=== PATIENT | female | born 1995 | race Caucasian/White ===

== ENCOUNTER → 2017-10-27 13:34 | Outpatient (CLI) | payer MEDICAID, SELFPAY ==
[2017-10-27 16:46] LABS: Group B Strep DNA By PCR Negative (Negative); Internal Control PASS; Probe Check PASS; Specimen Processing Control PASS
== END ==
PROVIDERS: Visit Provider Obstetrics & Gynecology
DX: Z36.85 Encounter for antenatal screening for Streptococcus B (principal)
CPT/HCPCS: 87077; 87081; 87186; 87653

== ENCOUNTER 2017-11-15 05:19 | Inpatient (IN) | payer MEDICAID, SELFPAY ==
[2017-11-09 15:06] VITALS: BMI 30.7
[2017-11-15] VITALS (22 sets, daily range): BP systolic 99–116; BP diastolic 53–76; PULSE 76–106; RESP 14–18; TEMP 36–36.6; O2SAT 95–100; BMI 30.8
[2017-11-15] MEDS: Lactated Ringers 1,000 ML 999 ML IV (05:50)
[2017-11-15 06:21] LABS: Absolute Lymphocyte Count 3.31 X10^3/ul (0.83-4.51); Absolute Neutrophil Count 6.2 X10^3/uL (2.0-7.7); Basophil# 0.02 X10^3/uL; Basophil% 0.2 % (0-1); Eosinophil# 0.74 X10^3/uL; Eosinophils% 6.6 % (0-5); Hematocrit 34.9 % (37-47); Hemoglobin 11.6 g/dl (12.0-15.0); Lymphocyte # 3.31 X10^3/ul (4.0); Lymphocyte % 29.4 % (19-41); Mean Corp Hgb Conc 33.2 g/gl (32-36); Mean Corpuscular Hgb 30.9 pg (27.0-32.0); Mean Corpuscular Volume 93.1 fL (81-99); Monocyte# 0.89 X10^3/uL; Monocyte% 7.9 % (0-10); Neutrophil # 6.24 X10^3/uL (2.7-7.7); Neutrophil % 55.3 % (47-70); Platelet Count 271 K/mm3 (150-450); RBC Distribution Width CV 12.7 % (11.6-14.6); RBC Distribution Width SD 42.4 fl (35.1-43.9); Red Blood Count 3.75 M/mm3 (4.2-5.4); White Blood Count 11.3 K/mm3 (4.4-11.0)
[2017-11-15 06:22] LABS: POSITIVE COUNT NO; POSITIVE DIFFERENTIAL NO; POSITIVE MORPHOLOGY NO
[2017-11-15 06:40] LABS: Prothrombin Time (Protime)PT. 13.5 SECONDS (11.7-14.9)
[2017-11-15 06:41] LABS: Partial Thromboplast Time 24.2 Seconds (24.1-36.2)
[2017-11-15] MEDS: Lactated Ringers 1,000 ML 150 ML IV (06:47)
[2017-11-15] MEDS: Sodium Citrate/Citric Acid 30 ML UDC PO (07:03)
[2017-11-15] MEDS: Cefazolin 2 GM in 0.9% Normal Saline 100 ML IV (07:20)
[2017-11-15] MEDS: Oxytocin 30 units/NS 500 ml 30 UNITS/500 ML IV.SOLN 167 UNITS IV (07:41)
--- NOTE | 2017-11-15 08:19 | PCM.OP.BLANK ---
Operative Report Date of Procedure: 11/15/17 Surgeon: Julio Wheeler MD, FACOG Chief Wellness Officer: ANNMARIE Vu Anesthesia: Sanford No CRNA Anesthesia: Spinal with Duramorph Pre-op Diagnosis: - -Prior Section Post-Op Diagnosis: - -Prior Section Procedure: Repeat Low Transverse Cervical Caesarean Section Findings: Viable male with Apgars of 9/9 in occiput anterior presentation with clear amniotic fluid and normal three-vessel placenta. Indication: This is a 22-year-old who presents for her second at 39+ weeks gestation. care has otherwise been uneventful. The patient has been counseled regarding the risk and indications of this procedure including the possibility of bleeding infection and injury to surrounding structures such as bowel bladder. All questions were answered. Procedure: Patient was taken to the operating room where after spinal anesthesia was placed, the patient was prepped and draped in usual sterile fashion and a Otero catheter was placed. The abdomen was entered through the patient's prior Pfannenstiel incision and peritoneum was entered bluntly. After developing a bladder flap on the lower uterine segment a low transverse incision was made on the uterus and head was easily delivered onto the operative field the nose mouth and oropharynx were bulb suctioned. Subsequently a viable male infant was born with Apgars of 9/9. The infant was noted to cry move all extremities vigorously on the operative field. The umbilical cord was doubly clamped and ligated and handed to the nursery personnel who were present for the delivery. Placenta was delivered and noted to be 3 vessels and normal. Uterus was exteriorized and remaining placental tissue was removed. The uterus was then closed in 2 layers first with running locked 0 Vicryl suture followed by a second imbricating layer with 0 Vicryl suture. 0 Vicryl suture was then used in a horizontal mattress interrupted fashion to affect final hemostasis of the uterine incision line. Normal fallopian tubes and ovaries were visualized and the uterus was returned to the pelvis. Hemostasis was noted and rectus abdominis muscles were reapproximated in the midline with interrupted Number 0 Vicryl suture in a horizontal mattress fashion. Fascia was closed with running Number 1 PDS Strata fix suture. Subcutaneous tissue was irrigated with copious amouts of saline solution and then closed with running 3-0 Vicryl suture. Skin was closed with 4-0 monocryl suture in a running subcuticular fashion. Steri strips, telfa, and tape were placed across the incision. The patient tolerated the procedure well and was taken to the recovery room in satisfactory condition. Sponge, needle, and instrument counts were all reportedly correct. EBL was less than 500 cc. Ancef 2 gms IV was given prior to the procedure. Spicemen to Pathology: None Complications: None
[2017-11-15] MEDS: Lactated Ringers 1,000 ML 100 ML IV ×2 (08:20→17:45)
--- NOTE | 2017-11-15 08:25 | PCM.DCCSEC ---
Discharge Diet: No Restrictions Discharge Activity: May not drive while taking narcotic pain medications., May Shower, May Take a Tub Bath May resume sexual activity in: 4-6 weeks Lifting Restrictions: 20 pounds Additional Activity Instructions:: Nothing in the vagina for 4-6 weeks. You may return to work/school in 6 weeks. Call your doctor if your incision/area has: Continuous Slow Oozing, Sudden Increased Bleeding, Increased Pain/ Swelling, Increased Redness, Foul Smelling Discharge Call your doctor if you observe: Fever of 101 or Higher, Inability to urinate, Inability to have a bowel movement, Using more than one pad per hour Additional Instructions: If you experience any of the following, contact your healthcare provider. Bleeding that soaks a pad every hour for 2 hours Unrelieved incision or abdominal pain Swelling, redness, discharge or bleeding from your incision or episiotomy site Your incision begins to separate Problems urinating (including inability to urinate or burning while urinating). Visual changes Severe headache Flu-like symptoms Pain or redness in one of both of your breasts Pain, warmth, tenderness or swelling in your legs, especially the calf area Frequent nausea and vomiting Symptoms of depression or anxiety If you experience any of the following, call 911 or go to the nearest Emergency Room. Chest pain Problems breathing Seizure activity Partial or complete paralysis of a body part, slurred speech, weakness or drooping of the face, or a sudden inability to walk or hold your balance Allergies/Adverse Reactions: Allergies hydrocodone [From Vicodin] Allergy (Verified 08/18/16 14:33) Vomiting hydromorphone [From Dilaudid] Allergy (Verified 11/09/17 15:04) Swelling Medications to take at Discharge Iron Bis-Gly/FA/C/B12/Ca/Succ [Iron / Tablet] 1 each PO DAILY 08/18/16 Vits [Prenatabs FA] 1 tablet PO DAILY 08/18/16 Folic Acid 2 mg PO BIDCM 11/09/17 Docusate Sodium [Colace] 100 mg PO BID PRN PRN #60 cap 11/15/17 Oxycodone [Oxyir] 5 mg PO Q6H PRN PRN 7 Days #20 tab 11/15/17 The following prescriptions were given: Oxycodone [Oxyir] 5 mg PO Q6H PRN PRN 7 Days #20 tab PRN Reason: Severe Pain (6-06/01) Docusate Sodium [Colace] 100 mg PO BID PRN PRN #60 cap PRN Reason: Constipation Follow-Up: Call to make an appointment with your doctor for an incision check in 1-2 weeks. You will also need a 6 week post- follow up appointment. Please Follow Up With: Julio Wheeler MD - [phone] When: 2 weeks Primary Care Physician: Care Physician,No Primary [Primary Care Provider] -
--- NOTE | 2017-11-15 08:28 | DCINST_ITS ---
Discharge Diet: No Restrictions Discharge Activity: May not drive while taking narcotic pain medications., May Shower, May Take a Tub Bath May resume sexual activity in: 4-6 weeks Lifting Restrictions: 20 pounds Additional Activity Instructions:: Nothing in the vagina for 4-6 weeks. You may return to work/school in 6 weeks. Call your doctor if your incision/area has: Continuous Slow Oozing, Sudden Increased Bleeding, Increased Pain/ Swelling, Increased Redness, Foul Smelling Discharge Call your doctor if you observe: Fever of 101 or Higher, Inability to urinate, Inability to have a bowel movement, Using more than one pad per hour Additional Instructions: If you experience any of the following, contact your healthcare provider. * Bleeding that soaks a pad every hour for 2 hours * Unrelieved incision or abdominal pain * Swelling, redness, discharge or bleeding from your incision or episiotomy site * Your incision begins to separate * Problems urinating (including inability to urinate or burning while urinating) . * Visual changes * Severe headache * Flu-like symptoms * Pain or redness in one of both of your breasts * Pain, warmth, tenderness or swelling in your legs, especially the calf area * Frequent nausea and vomiting * Symptoms of depression or anxiety If you experience any of the following, call 911 or go to the nearest Emergency Room. * Chest pain * Problems breathing * Seizure activity * Partial or complete paralysis of a body part, slurred speech, weakness or drooping of the face, or a sudden inability to walk or hold your balance Allergies/Adverse Reactions: Allergies hydrocodone [From Vicodin] Allergy (Verified 08/18/16 14:33) Vomiting hydromorphone [From Dilaudid] Allergy (Verified 11/09/17 15:04) Swelling Medications to take at Discharge Iron Bis-Gly/FA/C/B12/Ca/Succ [Iron 21/7 Tablet] 1 each PO DAILY 08/18/16 Vits [Prenatabs FA] 1 tablet PO DAILY 08/18/16 Folic Acid 2 mg PO BIDCM 11/09/17 Docusate Sodium [Colace] 100 mg PO BID PRN PRN #60 cap 11/15/17 Oxycodone [Oxyir] 5 mg PO Q6H PRN PRN 7 Days #20 tab 11/15/17 The following prescriptions were given: Oxycodone [Oxyir] 5 mg PO Q6H PRN PRN 7 Days #20 tab PRN Reason: Severe Pain (6-06/01) Docusate Sodium [Colace] 100 mg PO BID PRN PRN #60 cap PRN Reason: Constipation Follow-Up: Call to make an appointment with your doctor for an incision check in 1-2 weeks. You will also need a 6 week post- follow up appointment. Please Follow Up With: Julio Wheeler MD - [phone] When: 2 weeks Primary Care Physician: Care Physician,No Primary [Primary Care Provider] -
[2017-11-15] MEDS: Methylergonovine 0.2 MG/ML Ampul IM (09:42)
--- NOTE | 2017-11-15 10:40 | PCM.PN.BLA ---
Progress Note Called by JEANINE Roberson d/t elena inc in vaginal bleeding , intermittent atony Hemabate x one dose Methergine po q 6 hr x 24 hr.
[2017-11-15] MEDS: Carboprost Tromethamine 250 MCG/ML Ampul IM (10:58)
[2017-11-15] MEDS: Ketorolac 30 MG/ML Syringe IV ×2 (13:14→17:45)
[2017-11-15] MEDS: 0.9% Saline Lock 10 ML Syringe IV ×2 (13:14→17:45)
--- NOTE | 2017-11-15 14:26 | NURSING ---
This bridge instructor reviewed the charting completed by the student nurse on 11/15/17.
[2017-11-15] MEDS: Cefazolin 1 GM/50 ML BAG IV ×2 (16:17→22:35)
[2017-11-15] MEDS: Nalbuphine 10 MG/ML Ampul 5 MG IV ×2 (18:01→22:39)
--- NOTE | 2017-11-15 18:43 | NURSING ---
1130 peripad changed for lg amt saturation. 1230 peripad changed for mod-lg amt. 1430 peripad changed for mod amt saturation/ 1800 peripad changed for small amt. saturation. Nubain given for c/o itching.
[2017-11-15] MEDS: DiphenhydrAMINE 25 MG Capsule PO (20:56)
[2017-11-16] VITALS: BP 109/59; PULSE 89; RESP 18; TEMP 37.2; O2SAT 95
[2017-11-16] MEDS: Ketorolac 30 MG/ML Syringe IV ×4 (00:01→18:16)
[2017-11-16] MEDS: Nalbuphine 10 MG/ML Ampul 5 MG IV ×2 (01:38→07:47)
[2017-11-16] MEDS: 0.9% Saline Lock 10 ML Syringe IV ×6 (01:39→18:16)
[2017-11-16 01:46] VITALS: RESP 18; O2SAT 94
[2017-11-16] MEDS: Ondansetron 4 MG/2 ML Vial IV (03:24)
[2017-11-16] MEDS: DiphenhydrAMINE 25 MG Capsule PO (04:26)
[2017-11-16 04:27] VITALS: BP 93/48; PULSE 95; RESP 16; TEMP 37.7; O2SAT 94
[2017-11-16 05:01] LABS: Hematocrit 33.3 % (37-47); Mean Corpuscular Hgb 31.1 pg (27.0-32.0); Mean Corpuscular Volume 94.1 fL (81-99); Mean Platelet Vol. 8.6 fl (6.2-12.0); Platelet Count 241 K/mm3 (150-450); RBC Distribution Width CV 12.3 % (11.6-14.6); RBC Distribution Width SD 40.2 fl (35.1-43.9); Red Blood Count 3.54 M/mm3 (4.2-5.4); White Blood Count 13.9 K/mm3 (4.4-11.0)
[2017-11-16 05:02] LABS: Scan Indicated on CBC? Y/N NO
[2017-11-16] MEDS: oxyCODONE 5 MG Tablet PO ×3 (07:45→17:34)
[2017-11-16] MEDS: Senna/Docusate Sodium 1 Tablet PO (07:47)
[2017-11-16 08:00] VITALS: BP 103/58; PULSE 98; RESP 16; TEMP 37.1; O2SAT 100
--- NOTE | 2017-11-16 08:54 | PCM.PN.OB ---
Subjective: Patient without complaints. Tolerating diet well. Positive flatus. Pain well controlled. Some itching during the night from Duramorph. - Physical Exam Vital Signs AF, VSS Temp Pulse Resp BP Pulse Ox 98.8 F 98 16 103/58 L 100 11/16/17 08:00 11/16/17 08:00 11/16/17 08:00 11/16/17 08:00 11/16/17 08:00 Oxygen Delivery Method Room Air Weight: 168 lb 10.458 oz Body Mass Index (BMI) 30.8 Intake and Output for Last 24 Hours 11/14/17 11/15/17 11/16/17 23:59 23:59 23:59 Intake Total 1126 / 1126 1187 / 1187 Output Total 1300 / 1300 4400 / 4400 Balance -174 / -174 -3213 / -3213 Laboratory Tests Past 24 Hrs 11/16/17 04:50 WBC 13.9 H RBC 3.54 L Hgb 11.0 L Hct 33.3 L MCV 94.1 MCH 31.1 MCHC 33.0 RDW 12.3 RDW Differential 40.2 Plt Count 241 MPV 8.6 Wound is clean, dry, intact. Good urine output. Hemoglobin okay. Medical Necessity - Tobacco Use Smoking Status: Never smoker Assessment/Plan Doing well. Continuing present care.
--- NOTE | 2017-11-16 09:49 | NURSING ---
agree with student's assess.
[2017-11-16 14:00] VITALS: BP 96/54; PULSE 96; RESP 18; TEMP 36.9; O2SAT 98
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
[2017-11-16 20:05] VITALS: BP 101/60; PULSE 94; RESP 18; TEMP 37.1; O2SAT 100
[2017-11-16] MEDS: Acetaminophen 500 MG Tablet 1000 MG PO (22:54)
[2017-11-17] MEDS: Ketorolac 30 MG/ML Syringe IV ×2 (00:05→05:21)
[2017-11-17] MEDS: 0.9% Saline Lock 10 ML Syringe IV ×2 (00:06→05:21)
[2017-11-17] MEDS: oxyCODONE 5 MG Tablet PO ×2 (00:13→09:07)
[2017-11-17 02:00] VITALS: BP 100/52; PULSE 92; RESP 16; TEMP 37.2; O2SAT 97
[2017-11-17 08:40] VITALS: BP 108/60; PULSE 82; RESP 16; TEMP 37; O2SAT 99
[2017-11-17] MEDS: Senna/Docusate Sodium 1 Tablet PO (09:07)
--- NOTE | 2017-11-17 09:07 | PCM.PN.OB ---
Subjective: Patient without complaints. Tolerating diet well. Minimal pain. Some irritation from adhesive of paper tape. Ready to go home. - Physical Exam Vital Signs AF, VSS Temp Pulse Resp BP Pulse Ox 98.6 F 82 16 108/60 99 11/17/17 08:40 11/17/17 08:40 11/17/17 08:40 11/17/17 08:40 11/17/17 08:40 Oxygen Delivery Method Room Air Weight: 168 lb 10.458 oz Body Mass Index (BMI) 30.8 Intake and Output for Last 24 Hours 11/15/17 11/16/17 11/17/17 23:59 23:59 23:59 Intake Total 1126 / 1126 1187 / 1187 Output Total 1300 / 1300 5010 / 5010 Balance -174 / -174 -3823 / -3823 Wound is clean, dry, intact. Some irritation from paper tape but no evidence of infection. Medical Necessity - Tobacco Use Smoking Status: Never smoker Assessment/Plan Doing well. Will release to home with routine instructions. Follow-up in 2 weeks.
[2017-11-17] MEDS: Acetaminophen 500 MG Tablet 1000 MG PO (11:58)
== END 2017-11-17 11:50 | disposition home or self-care (01) | DRG 371 ==
PROVIDERS: Admitting Provider Obstetrics & Gynecology; Visit Provider Obstetrics & Gynecology
DX: O34.211 Maternal care for low transverse scar from previous cesarean delivery (principal); O72.1 Other immediate postpartum hemorrhage; O99.824 Streptococcus B carrier state complicating childbirth; Z37.0 Single live birth; Z3A.39 39 weeks gestation of pregnancy
CPT/HCPCS: 85025; 85027; 85610; 85730; 86850; 86900; 99218; J7120; A4216; G0378; J2405

== ENCOUNTER 2019-02-01 20:10 | Emergency (ER) | payer MEDICAID, SELFPAY ==
[2019-02-01 20:13] VITALS: BP 114/78; PULSE 82; RESP 15; TEMP 36.5; O2SAT 97; BMI 28.0
--- NOTE | 2019-02-01 20:49 | ED.VISSUMM ---
- ER Visit Summary Date of Service: 02/01/19 Chief Complaint: Atraumatic right shoulder pain History of Present Illness: The patient is a 23 F [id number]. For the last 3 days she is had right shoulder pain with movement she feels like her distal end of her right clavicle is moving. She can do normal range of motion. Time she feels a popping or movement. She denies any recent falls, trauma, swelling, fever or redness. She is never had right shoulder surgery. She did have an injury several years ago but never followed up with orthopedic physician at that time. She does not believe she was told she had an AC separation at that time. Physical Examination: Young female no acute distress. Vital signs are stable she is afebrile. H EENT exam unremarkable. Neck nontender. Lungs clear to auscultation. Heart regular rhythm no murmur. Abdomen soft nontender. Extremities moves all 4. Neurovascular intact. Specifically she has normal range of motion of her right shoulder. Both AB and adduction. Internal and external rotation. With certain ranges of motion there does feel like there is movement of the distal clavicle. There is no dislocation of the shoulder. There is no redness or warmth. There is no bony deformity. Distal humerus, elbow, forearm, wrist and hand are nontender neurovascular intact with 5 out of 5 crusher dry ground mica strength. Normal sensation. Normal range of motion. Normal radial pulse. Test Results: Discussed with patient but she deferred x-rays at this time. There is been no trauma. Emergency Department Course and Treatment: Patient will be referred to local orthopedics for further evaluation of her shoulder. Ice to the area. Motrin for pain. Treatment Plan: Ice. Anti-inflammatories. Orthopedic referral. Disposition: Discharge Impression: Acute atraumatic right shoulder pain suspect secondary to prior AC separation This note was generated with [employer] dictation software. It may contain incorrect words, spelling, and punctuation that were not noted in review of the chart prior to signing ED Disposition - Plan for ED Patient: Referrals: Jose Connors MD [Primary Care Provider] -
--- NOTE | 2019-02-01 20:52 | ED.DCSUM_ITS ---
- ER Visit Summary Date of Service: 02/01/19 Chief Complaint: Atraumatic right shoulder pain History of Present Illness: The patient is a 23 F [id number]. For the last 3 days she is had right shoulder pain with movement she feels like her distal end of her right clavicle is moving. She can do normal range of motion. Time she feels a popping or movement. She denies any recent falls, trauma, swelling, fever or redness. She is never had right shoulder surgery. She did have an injury several years ago but never followed up with orthopedic physician at that time. She does not believe she was told she had an AC separation at that time. Physical Examination: Young female no acute distress. Vital signs are stable she is afebrile. H EENT exam unremarkable. Neck nontender. Lungs clear to auscultation. Heart regular rhythm no murmur. Abdomen soft nontender. Extr emities moves all 4. Neurovascular intact. Specifically she has normal range of motion of her right shoulder. Both AB and adduction. Internal and external rotation. With certain ranges of motion there does feel like there is movement of the distal clavicle. There is no dislocation of the shoulder. There is no redness or warmth. There is no bony deformity. Distal humerus, elbow, forearm, wrist and hand are nontender neurovascular intact with 5 out of 5 warp yarn sorter strength. Normal sensation. Normal range of motion. Normal radial pulse. Test Results: Discussed with patient but she deferred x-rays at this time. There is been no trauma. Emergency Department Course and Treatment: Patient will be referred to local orthopedics for further evaluation of her shoulder. Ice to the area. Motrin for pain. Treatment Plan: Ice. Anti-inflammatories. Orthopedic referral. Disposition: Discharge Impression: Acute atraumatic right shoulder pain suspect secondary to prior AC separation This note was generated with [employer] dictation software. It may contain incorrect words, spelling, and punctuation that were not noted in review of the chart prior to signing ED Disposition - Plan for ED Patient: Referrals: Jose Connors MD [Primary Care Provider] -
--- NOTE | 2019-02-01 20:52 | ED.DEP ---
ED Disposition - Plan for ED Patient: Disposition: Home or Assisted Living Referrals: Adelso Joseph DO [STAFF PHYSICIAN] - As soon as possible Jose Aleman MD [NON-STAFF] - As soon as possible Additional Instructions: Ice of the right shoulder. Motrin or ibuprofen for pain and inflammation. Sling to rest the shoulder. Not improving follow-up with either local orthopedics or Dr. Jose Aleman shoulder specialist at the [facility].
[2019-02-01 20:59] VITALS: PULSE 73; RESP 16; O2SAT 98
--- NOTE | 2019-02-01 20:59 | ED.RN ---
THIS NURSE REVIEWED D/C INSTRUCTIONS WITH PT. PT VERBALIZED UNDERSTANDING OF INSTRUCTIONS. PT DENIES FURTHER NEEDS OR QUESTIONS AT TIME
== END 2019-02-01 21:00 | disposition home or self-care (01) ==
PROVIDERS: Emergency Provider Emergency Medicine; Family Provider Family Medicine; PCP Family Medicine
DX: M25.511 Pain in right shoulder (principal)
CPT/HCPCS: 99283

== ENCOUNTER → 2019-03-08 | Outpatient (CLI) | payer MEDICAID, SELFPAY ==
[2019-03-08 15:28] LABS: Chlamydia Trachomatis by PCR Negative (Negative); Neisserai gonorrhoeae by PCR Negative (Negative); Probe Check PASS; Sample Adequacy Control PASS; Specimen Processing Control PASS
[2019-03-13 12:24] LABS: HPV APTIMA, High Risk Positive (Negative)
== END | disposition home or self-care (01) ==
LOC: LABSPEC 13:27
PROVIDERS: Family Provider Family Medicine; PCP Family Medicine; Referring Provider Obstetrics & Gynecology; Visit Provider Obstetrics & Gynecology
DX: Z12.4 Encounter for screening for malignant neoplasm of cervix (principal); Z11.3 Encounter for screening for infections with a predominantly sexual mode of transmission
CPT/HCPCS: 87491; 87591; 88175; G0145

== ENCOUNTER → 2019-05-29 16:44 | Outpatient (CLI) | payer MEDICAID, SELFPAY ==
[2019-05-29 21:58] LABS: Chlamydia Trachomatis by PCR Negative (Negative); Neisserai gonorrhoeae by PCR Negative (Negative); Probe Check PASS; Sample Adequacy Control PASS; Specimen Processing Control PASS
== END ==
PROVIDERS: Visit Provider Advanced Practice Midwife
DX: Z11.3 Encounter for screening for infections with a predominantly sexual mode of transmission (principal)
CPT/HCPCS: 87491; 87591

== ENCOUNTER 2019-07-28 17:24 | Emergency (ER) | payer MEDICAID, SELFPAY ==
[2019-07-10 15:22] VITALS: BMI 28.0
[2019-07-28 17:25] VITALS: BP 141/82; PULSE 108; RESP 15; TEMP 36.2; O2SAT 99
[2019-07-28 18:21] LABS: Bacteria 0 SEEN /hpf (None Seen); Mucous, Urine 0 SEEN /hpf (<or=2+); Red Blood Cells-Urine 0 SEEN /hpf (0-5); White Blood Cells 0 SEEN /hpf (0-5)
[2019-07-28 18:43] LABS: Color, Urine Yellow (Yellow); Glucose, Dipstick Normal (Normal); Ketone-Dipstick Negative (Negative); Leukocyte Esterase-Dipstick 25 /ul (Negative); Nitrite-Dipstick Negative (Negative); Occult Blood-Urine Negative /ul (Negative); Protein-Dipstick 15 mg/dl (Negative); Urine Bilirubin Dipstick Negative (Negative); Urine Clarity Clear (Clear); Urine Urobilinogen Normal (Normal)
[2019-07-28 19:07] LABS: Internal QC Validated? YES +Cl - CLEAR BKGD; Pregnancy, Urine Negative Negative
[2019-07-28 19:24] VITALS: BP 138/96; PULSE 101; RESP 16; O2SAT 97
[2019-07-28 19:29] LABS: Squamous Epithelial Cells - UA 0-5 SEEN /hpf (5-10)
--- NOTE | 2019-07-28 21:09 | ED.VISSUMM ---
- ER Visit Summary Date of Service: 07/28/19 Chief Complaint: Flank pain History of Present Illness: The patient is a 23 F who has bilateral flank pain. She states that started earlier today. The pain is on the right and left side. Nothing makes his pain better or worse. She denies any urinary symptoms. Tylenol did not help at home. She denies any history of kidney stones. She denies any trauma. Physical Examination: Vital signs reviewed. HEENT exam unremarkable. Heart is regular rate and rhythm without murmurs. Lungs are clear to auscultation. Abdomen is soft and nontender. She does have bilateral flank tenderness to palpation. Extremities reveal no edema. Skin exam normal. Neurologic exam normal. Test Results: Urinalysis is normal Emergency Department Course and Treatment: I ordered the patient Toradol but she refused it because she stated that it would not help. When I informed her of her results she said that she knew it would be normal. I told her that it could be muscular as well. She then walked out and eloped from the emergency department Treatment Plan: [] Disposition: Elopement Impression: Bilateral flank pain This note was generated with [employer] dictation software. It may contain incorrect words, spelling, and punctuation that were not noted in review of the chart prior to signing ED Disposition - Plan for ED Patient: Disposition: Home or Assisted Living Referrals: Jose Connors MD [Primary Care Provider] -
== END 2019-07-28 20:07 | disposition home or self-care (01) ==
LOC: ED 18:52
PROVIDERS: Emergency Provider Emergency Medicine; Family Provider Family Medicine; PCP Family Medicine
DX: R10.9 Unspecified abdominal pain (principal)
CPT/HCPCS: 81001; 81025; 99282

== ENCOUNTER → 2020-03-11 | Outpatient (CLI) | payer MEDICAID, SELFPAY ==
[2020-03-20 13:27] LABS: HPV HC, High Risk Positive (Negative); HPV Reflexed? YES, CHARGE PATIENT
== END | disposition home or self-care (01) ==
LOC: LABSPEC 16:35
PROVIDERS: PCP Family Medicine; Visit Provider Obstetrics & Gynecology
DX: Z12.4 Encounter for screening for malignant neoplasm of cervix (principal)
CPT/HCPCS: 87624; 88175; G0145

== ENCOUNTER → 2020-06-19 | Outpatient (CLI) | payer MEDICAID, SELFPAY | END | disposition home or self-care (01) | LOC: LABSPEC 16:50 | PROVIDERS: PCP Family Medicine; Visit Provider Obstetrics & Gynecology | DX: R30.0 Dysuria (principal); R35.0 Frequency of micturition | CPT/HCPCS: 87077; 87086; 87088; 87186 ==

== ENCOUNTER 2020-07-29 12:33 | Emergency (ER) | payer MEDICAID, SELFPAY ==
[2020-07-29 12:36] VITALS: BP 113/83; PULSE 104; RESP 17; TEMP 37.1; O2SAT 97; BMI 29.2
[2020-07-29 12:38] VITALS: BP 113/83; PULSE 104; RESP 17; TEMP 37.1; O2SAT 97
--- NOTE | 2020-07-29 12:44 | RAD_ITS ---
STUDY: X-RAY CHEST REASON FOR EXAM: Female, 24 years old. Sternal pain w/ deep inspiration, cough, shortness of breath. TECHNIQUE: Single AP portable view of the chest. COMPARISON: None. FINDINGS: EKG electrodes are seen. The lungs are clear and expanded. There is no demonstrated pleural abnormality. Normal size heart. Normal mediastinum and yoseph. Normal visualized pulmonary arteries. Normal visualized aortic arch and descending thoracic aorta. Normal visualized thoracic spine. Normal visualized ribs, clavicles, and shoulders. There is no demonstrated abnormality of the visualized soft tissue structures of the upper abdomen. RAD/Chest 1 View (Portable) IMPRESSION: Normal x-ray examination of the chest. Electronically Signed: Kerwin Li, at 14:16 EST , Service support ,
--- NOTE | 2020-07-29 12:58 | ED.VIS.GEN ---
History of Present Illness Chief Complaint: Chest Pain Informant: Patient Onset: Days Context: Gradual Onset Timing: Intermittent Current Severity: Moderate Maximum Severity: Moderate Narrative: Patient is a 24-year-old female is otherwise healthy, only daily medication is control, who presents to the emergency department chest pain and cough. Patient states she has been having intermittent coughing for the past 2 weeks. She states that she has had 3 - Covid tests. She went to urgent care today. Her Covid was negative. She did complain of some pain with inspiration and with coughing. Due to concern for pulmonary embolus, she was sent here. She denies orthopnea, leg edema, or any significant pain. She states is mostly with coughing. She denies any fevers or chills. She is otherwise been in her normal state of health. Prior similar symptoms: No Recent Illness/Hospitalization: No Past Medical History - Allergies and Home Meds Allergies/Adverse Reactions: Allergies hydrocodone [From Vicodin] Allergy (Verified 07/29/20 12:35) Vomiting hydromorphone [From Dilaudid] Allergy (Verified 07/29/20 12:35) Swelling Primary Care Physician: Jose Connors MD [Primary Care Provider] - Prior records reviewed: Yes Past Medical History: None Surgical History: no surgical history Smoking Status: Never smoker Review of Systems General: Denies: Chills, Fever, Sweats Eyes: Denies: Visual changes - bilaterally, Diplopia ENT: Denies: Rhinorrhea, Sore throat Cardiovascular: Reports: Chest pain. Denies: Palpitations Respiratory: Reports: Dyspnea, Cough. Denies: Dyspnea on exertion Gastrointestinal: Denies: Abdominal pain, Nausea, Vomiting, Diarrhea, Melena, Hematochezia Genitourinary: Denies: Dysuria, Hematuria, Frequency Musculoskeletal: Denies: Back pain, Extremity Pain Skin: Denies: Rash, Wounds Neurological: Denies: Headache, Weakness, Numbness Physical Exam Vital Signs/Narrative: Vital Signs Temp Pulse Resp BP Pulse Ox 07/29/20 12:38 98.8 F 104 H 17 113/83 H 97 07/29/20 12:36 98.8 F 104 H 17 113/83 H 97 Inital Vital Signs reviewed: Yes General: Well nourished, Well developed, No Acute Distress Head: Normocephalic, Atraumatic Eyes: Perrl, EOMI ENT: Moist mucous membranes, No rhinorrhea Neck: Supple, Nontender Cardiovascular: Regular rate, Regular rhythm, No murmurs Respiratory: No distress, CTA bilaterally, Chest nontender Abdomen: Soft, Nontender, Nondistended, Normal bowel sounds Back: Nontender, Normal Inspection Extremities: Nontender, No edema Skin: Normal color, No rash Neurological: Alert, Oriented x3, Cranial nerves II-XII grossly intact, Normal Strength, Normal Sensation Psychological: Normal affect, Normal Mood Diagnostic/Tx/Re-eval Chest X-Ray - ED: 1 View, Read by ED Physician, Normal, Heart, Lungs, Mediastinum Abnormal Lab Results 07/29/20 07/29/20 07/29/20 13:10 13:10 13:10 WBC 6.9 RBC 4.19 L Hgb 12.5 Hct 37.4 MCV 89.3 MCH 29.8 MCHC 33.4 RDW Std Deviation 38.5 RDW Coeff of Keeley 11.9 Plt Count 327 MPV 9.6 Immature Gran % (Auto) 0.300 Neut % (Auto) 64.7 Lymph % (Auto) 26.3 [place] % (Auto) 7.1 Eos % (Auto) 1.3 Baso % (Auto) 0.3 Absolute Neuts (auto) 4.5 Absolute Lymphs (auto) 1.81 Nucleated RBC % 0 D-Dimer Quant (PE/DVT) 0.28 Sodium 139 Potassium 3.8 Chloride 107 Carbon Dioxide 27.0 Anion Gap 5 BUN 5 L Creatinine 0.68 Estim Creat Clear Calc 102.64 Est GFR (MDRD) Af Amer 137 Est GFR (MDRD) Non-Af 113 BUN/Creatinine Ratio 7.3 L Glucose 88 Calcium 9.2 Serum , Qual 07/29/20 13:10 WBC RBC Hgb Hct MCV MCH MCHC RDW Std Deviation RDW Coeff of Keeley Plt Count MPV Immature Gran % (Auto) Neut % (Auto) Lymph % (Auto) [place] % (Auto) Eos % (Auto) Baso % (Auto) Absolute Neuts (auto) Absolute Lymphs (auto) Nucleated RBC % D-Dimer Quant (PE/DVT) Sodium Potassium Chloride Carbon Dioxide Anion Gap BUN Creatinine Estim Creat Clear Calc Est GFR (MDRD) Af Amer Est GFR (MDRD) Non-Af BUN/Creatinine Ratio Glucose Calcium Serum , Qual NEGATIVE - Medical Decision Making The patient was then from urgent care due to concern for pulmonary embolus. She has a scant cough and a mild wheeze. She does have some pain with coughing. She is on control, but has no history of pulmonary embolus. She does not smoke. Patient was given an inhaler with improvement. Her chest x-ray shows no focal infiltrative process. Screening labs including D-dimer were negative. The patient's waxing and waning symptoms, I am going to treat her with doxycycline and prednisone. She is comfortable with this plan of care and will be discharged home. Impression 1. Bronchitis with bronchospasm ED Disposition - Plan for ED Patient: Instructions: ED Bronchitis with Wheezing (Adult) Prescriptions: Prednisone [Deltasone] 40 mg PO DAILY #10 tab Prescription Printed Doxycycline 100 mg PO BID #20 cap Prescription Printed Referrals: Jose Connors MD [Primary Care Provider] -
[2020-07-29 13:29] LABS: Absolute Lymphocyte Count 1.81 X10^3/uL (0.83-4.51); Absolute Neutrophil Count 4.5 X10^3/uL (2.0-7.7); Basophil# 0.02 X10^3/uL; Basophil% 0.3 % (0-1); Eosinophil# 0.09 X10^3/uL; Eosinophils% 1.3 % (0-5); Hematocrit 37.4 % (37-47); Hemoglobin 12.5 g/dL (12.0-15.0); Lymphocyte # 1.81 X10^3/ul (4.0); Lymphocyte % 26.3 % (19-41); Mean Corp Hgb Conc 33.4 g/dL (32-36); Mean Corpuscular Hgb 29.8 pg (27.0-32.0); Mean Corpuscular Volume 89.3 fL (81-99); Mean Platelet Vol. 9.6 fl (6.2-12.0); Monocyte# 0.49 X10^3/uL; Monocyte% 7.1 % (0-10); NRBC Flagged by Analyzer 0 % (0-5); Neutrophil # 4.45 X10^3/uL (2.7-7.7); Neutrophil % 64.7 % (47-70); Platelet Count 327 K/mm3 (150-450); RBC Distribution Width CV 11.9 % (11.6-14.6); RBC Distribution Width SD 38.5 fl (35.1-43.9); Red Blood Count 4.19 M/mm3 (4.2-5.4); White Blood Count 6.9 K/mm3 (4.4-11.0)
[2020-07-29 13:34] LABS: Internal QC Validated? YES +Cl - CLEAR BKGD; Pregnancy, Serum, hCG Quali. NEGATIVE Negative
[2020-07-29 13:41] LABS: Anion Gap 5 (5-15); BUN 5 mg/dL (7-18); BUN/Creat Ratio 7.3 RATIO (10-20); Calcium,Total 9.2 mg/dL (8.5-10.1); Chloride 107 mmol/L (98-107); Creatinine, Serum 0.68 mg/dL (0.55-1.02); EST Glomerular Filtration Rate 113 mL/min (>60); Est Glom Filt Rate - Afr Amer 137 mL/min (>60); Estimated Creatinine Clearance 102.64 ml/min; Glucose 88 mg/dL (74-106); Potassium 3.8 mmol/L (3.5-5.1); Sodium Level 139 mmol/L (136-145)
[2020-07-29 14:00] LABS: D-Dimer Quantitative (DVT/PE) 0.28 FEU/ug/m (0.27-0.49)
[2020-07-29 14:18] VITALS: BP 120/86; PULSE 107; RESP 13; O2SAT 97
== END 2020-07-29 14:24 | disposition home or self-care (01) ==
LOC: ED 12:56
PROVIDERS: Emergency Provider Emergency Medicine; PCP Family Medicine
DX: J40 Bronchitis, not specified as acute or chronic (principal); J98.01 Acute bronchospasm
CPT/HCPCS: 71045; 80048; 84703; 85025; 85379; 99284; A4216

== ENCOUNTER 2020-12-09 12:09 | Emergency (ER) | payer MEDICAID, SELFPAY ==
[2020-12-09 12:10] VITALS: BP 117/82; PULSE 107; RESP 18; TEMP 36.4; O2SAT 96; BMI 27.3
--- NOTE | 2020-12-09 12:37 | US_ITS ---
STUDY: ABDOMINAL ULTRASOUND - RIGHT UPPER QUADRANT REASON FOR VISIT: Female, 25 years old PAIN TECHNIQUE: Ultrasound evaluation of the right upper quadrant was performed with real-time and static sarmiento-scale imaging. TECHNICAL QUALITY: Adequate. COMPARISON: None. FINDINGS: Liver: The liver measures 15.2 cm. There is normal echogenicity of the liver. The bile ducts are within normal limits. There is hepatic color flow. The direction of portal flow is hepatopetal. There is no demonstrated mass lesion. Gallbladder: Normal distended gallbladder. The gallbladder wall measures 2 mm. There is a negative sonographic Alva''s sign. There is no pericholecystic fluid. There are no gallstones. Common Bile Duct (C.B.D.): The common bile duct measures 3 mm. Pancreas: Normal size of the head, body and tail of the pancreas. There is normal echogenicity of the pancreas. There is no demonstrated pancreatic mass or cyst. Right Kidney: Normal size of the right kidney. The right kidney measures 9.7 cm. Normal renal cortex. The right cortex measures 1.3 cm. There is no demonstrated renal mass or cyst. There is no right hydronephrosis. US/Gallbladder IMPRESSION: Normal right upper quadrant ultrasound examination. Electronically Signed: Yosvany Zaidi MD at 13:41 EDT Tel , Service support ,
[2020-12-09 12:44] LABS: Absolute Lymphocyte Count 1.62 X10^3/uL (0.83-4.51); Absolute Neutrophil Count 4.3 X10^3/uL (2.0-7.7); Basophil# 0.02 X10^3/uL; Basophil% 0.3 % (0-1); Eosinophil# 0.06 X10^3/uL; Eosinophils% 0.9 % (0-5); Hematocrit 40.3 % (37-47); Lymphocyte # 1.62 X10^3/ul (0.83-4.51); Lymphocyte % 25.3 % (19-41); Mean Corp Hgb Conc 32.3 g/dL (32-36); Mean Corpuscular Volume 89.8 fL (81-99); Mean Platelet Vol. 9.2 fl (6.2-12.0); Monocyte# 0.38 X10^3/uL; Monocyte% 5.9 % (0-10); NRBC Flagged by Analyzer 0 % (0-5); Neutrophil # 4.32 X10^3/uL (2.7-7.7); Neutrophil % 67.4 % (47-70); Platelet Count 302 K/mm3 (150-450); RBC Distribution Width CV 11.9 % (11.6-14.6); RBC Distribution Width SD 38.8 fl (35.1-43.9); Red Blood Count 4.49 M/mm3 (4.2-5.4); White Blood Count 6.4 K/mm3 (4.4-11.0)
--- NOTE | 2020-12-09 12:52 | ED.DCSUM_ITS ---
History of Present Illness Chief Complaint: Abd Pain Informant: Patient - Abdominal Pain/Flank Pain Onset: Weeks - 1 to 2 weeks Context: Sudden Onset Timing: Intermittent Quality: Aching, Cramping Location: RUQ, Right Flank Current Severity: Mild Maximum Severity: Severe Worsened by: Food Relieved by: Nothing - Nausea/Vomiting/Emesis GI Symptom: Nausea Onset: Weeks Severity: Moderate - Diarrhea/Melena/Hematochezia GI Symptom: Negative for: Diarrhea, Melena, Hematochezia Associated Symptoms: Negative for: Dysuria, Frequency, Hematuria, Urgency LMP: Beginning of the month Narrative: Patient is a 25-year-old woman who presents with intermittent abdominal pain located in the right upper quadrant that initially was exacerbated by greasy fried foods. There is a strong family history of cholelithiasis/cholecystitis. She states now anything exacerbates it. The pain is wrapping around to her back. She reports diarrhea over the past week. She denies blood or black stool/diarrhea. She denies fever, chills night sweats. She denies ocular, visual auditory symptoms. She denies cardiac or respiratory symptoms. She denies trauma or rash. She denies urologic symptoms. There is no history of renal ureterolithiasis. Prior similar symptoms: No Recent Illness/Hospitalization: No Past Medical History - Allergies and Home Meds Allergies/Adverse Reactions: Allergies hydrocodone [From Vicodin] Allergy (Verified 12/09/20 12:13) Vomiting hydromorphone [From Dilaudid] Allergy (Verified 12/09/20 12:13) Swelling Primary Care Physician: Jose Connors MD [Primary Care Provider] - Prior records reviewed: Yes Surgical History: no surgical history Lives: Alone Smoking Status: Never smoker Alcohol: None Drugs: None Review of Systems General: Denies: Chills, Fever, Malaise, Subjective Eyes: Denies: Visual changes - bilaterally, Blurred Vision - bilaterally ENT: Denies: Rhinorrhea, Sore throat Cardiovascular: Denies: Chest pain, Palpitations Respiratory: Denies: Dyspnea, Cough, Dyspnea on exertion Gastrointestinal: Reports: Abdominal pain, Nausea Genitourinary: Denies: Dysuria, Hematuria, Frequency Musculoskeletal: Reports: Back pain. Denies: Myalgias, Arthralgias, Neck pain, Swelling, Extremity Pain, -, - Skin: Denies: Rash, Wounds Neurological: Denies: Headache, Weakness Hematologic: Denies: Easy bruising, Easy bleeding Physical Exam Vital Signs/Narrative: Vital Signs Temp Pulse Resp BP Pulse Ox 12/09/20 12:10 97.6 F L 107 H 18 117/82 H 96 Inital Vital Signs reviewed: Yes General: Well nourished, Well developed, No Acute Distress Head: Normocephalic, Atraumatic Eyes: Perrl, EOMI. Negative for: Pale conjunctiva, Scleral icterus ENT: Moist mucous membranes, No rhinorrhea Neck: Supple, Nontender, No lymphadenopathy, No JVD Cardiovascular: Regular rate, Regular rhythm, No murmurs, Normal S1, Normal S2 Respiratory: No distress, CTA bilaterally, Chest nontender Abdomen: Soft, Nondistended, Normal bowel sounds, Tender, Alva's sign Rectal: Deferred Back: Nontender, Normal Inspection. Negative for: CVA tenderness Extremities: Nontender, No edema Skin: Normal color, No rash Neurological: Alert, Oriented x3, Cranial nerves II-XII grossly intact, Normal Strength, Normal Sensation Psychological: Normal affect, Normal Mood Diagnostic/Tx/Re-eval Impressions Gallbladder Ultrasound 12/09/20 12:37 IMPRESSION: Normal right upper quadrant ultrasound examination. Electronically Signed: Yosvany Zaidi MD at 13:41 EDT Tel , Service support , 12/09/20 12:37 Gallbladder [US] Stat Laboratory Results 12/09/20 12/09/20 12:24 12:24 WBC 6.4 RBC 4.49 Hgb 13.0 Hct 40.3 MCV 89.8 MCH 29.0 MCHC 32.3 RDW Std Deviation 38.8 RDW Coeff of Keeley 11.9 Plt Count 302 MPV 9.2 Immature Gran % (Auto) 0.200 Neut % (Auto) 67.4 Lymph % (Auto) 25.3 [place]ett % (Auto) 5.9 Eos % (Auto) 0.9 Baso % (Auto) 0.3 Absolute Neuts (auto) 4.3 Absolute Lymphs (auto) 1.62 Nucleated RBC % 0 Total Bilirubin 0.30 Direct Bilirubin 0.08 AST 13 L ALT 15 Alkaline Phosphatase 74 Total Protein 7.6 Albumin 3.8 Globulin 3.8 Lipase 70 L Patient's work-up is unremarkable. Patient was instructed to follow-up with her primary care physician for outpatient HIDA scan. If this is negative she will need an EGD. - Medical Decision Making Differential diagnoses include gastritis, GERD, biliary due to disease with colic, cholecystitis atypical presentation for obstructing ureteral stone. Appropriate blood work was ordered. Since she last ate at 0530 ultrasound of the gallbladder was ordered. She states she had one bite of leg, no lobar. ED Disposition - Plan for ED Patient: Disposition: Home or Assisted Living Diagnosis: Right upper quadrant pain, Diarrhea Instructions: ED Abdominal Pain Unkn Cause Fem Referrals: Jose Connors MD [Primary Care Provider] - 3-5 Days Additional Instructions: You will need to follow-up with your doctor for outpatient HIDA scan to assess the function of your gallbladder. The ultrasound of your gallbladder is normal and all your blood work is normal.
[2020-12-09 12:58] LABS: AST(SGOT) 13 U/L (15-37); Alanine Aminotransfer ALT/SGPT 15 U/L (13-56); Albumin, Serum 3.8 g/dL (3.2-5.0); Alkaline Phosphatase 74 U/L (45-117); Bilirubin, Direct 0.08 mg/dL (0.00-0.30); Globulin 3.8 g/dL (2.2-4.2); Lipase 70 U/L (73-393); Protein, Total 7.6 g/dL (6.4-8.2)
[2020-12-09] MEDS: Ondansetron 4 MG/2 ML Vial IV (13:19)
== END 2020-12-09 14:50 | disposition home or self-care (01) ==
PROVIDERS: Emergency Provider Emergency Medicine; PCP Family Medicine
DX: R10.11 Right upper quadrant pain (principal); R19.7 Diarrhea, unspecified; Z83.79 Family history of other diseases of the digestive system
CPT/HCPCS: 76705; 80076; 83690; 85025; 96374; 99283; A4216; J2405

== ENCOUNTER → 2021-04-10 | Outpatient (CLI) | payer MEDICAID, SELFPAY ==
[2021-04-16 18:28] LABS: HPV APTIMA, High Risk Positive (Negative); HPV Reflexed? YES, CHARGE PATIENT
== END | disposition home or self-care (01) ==
LOC: LABSPEC 10:27
PROVIDERS: PCP Family Medicine; Visit Provider Obstetrics & Gynecology
DX: Z12.4 Encounter for screening for malignant neoplasm of cervix (principal)
CPT/HCPCS: 87624; 88175; G0145

== ENCOUNTER → 2021-06-05 15:37 | Outpatient (CLI) | payer MEDICAID, SELFPAY ==
--- NOTE | 2021-06-05 | IMM_PTH ---
PATIENT: VANESSA SANFORD LOC: [facility] U#:[id number] AGE/SX: 29/F ROOM: RE06/05/[address]: Dr. Julio Wheeler MD : 1995 BED: DIS: SPEC #: [id number] RECD: 06/10/21 12:53 STATUS: BRIDGET REQ #: [id number] JASON: 06/05/21 00:[address]: Julio Wheeler DEPT: IMMUNOHISTOCHEMISTRY RECD BY: Supriya Rodríguez ENTERED: 06/10/21 12:54 SP TYPE: IMMUNO OTHR DR: Dr. Jose Connors MD Tissues: A - Uterine cervix, NOS B - Endocervical Procedures: p16 (initial) KI-67 (add) PHYSICIAN & INSTITUTION [place] [id number] SPECIMEN INFORMATION: Tissue Source: A ? Cervical biopsy, B - ECC Clinical Info: R87.612 Specimen Number: [id number] A & B CPT code: 58256 x2, 05300 x2 METHODOLOGY: Deparaffinized sections of prefer/formalin-fixed tissue or PAP/DQ stained slides are incubated with monoclonal/polyclonal antibodies/oligonucleotide probes. Localization is made via biotin free immunoperoxidase method. Appropriate controls are performed and reacted as expected. Results on target cell population are indicated in the following table: RESULTS: ANTIBODY / CLONE RESULT Block A P16 (E6H4) negative Ki-67 (30-9) positive, low Block B P16 (E6H4) positive, patchy in desquamated epithelial cells Ki-67 (30-9) negative These tests were developed and their performance characteristics determined by [facility]. They may not have been cleared or approved by the U.S. Food and Drug Administration. The FDA has determined that such clearance or approval is not necessary. The above immunohistochemical/dualISH markers are ordered and reviewed by the Pathologist. INTERPRETATION: A. Cervical biopsy: Mild and focal moderate squamous dysplasia. B. ECC: Desquamated squamous epithelial cells with changes suspicious for HPV cytopathic effects. CARLA:lucia 06/11/2021 Case has been reviewed in consultation with Dr. Gilbert who concurs with the above diagnosis. IDC:AM
--- NOTE | 2021-06-05 | CER_PTH ---
PATIENT: VANESSA SANFORD LOC: [facility] U#:[id number] AGE/SX: 29/ ROOM: RE06/05/[address]: Dr. Julio Wheeler MD : 1995 BED: DIS: SPEC #: [id number] RECD: 06/06/21 08:06 STATUS: BRIDGET WONG #: [id number] JASON: 06/05/21 00:[address]: Julio Wheeler DEPT: SURGICAL PATHOLOGY RECD BY: Jessee Dacosta ENTERED: 06/06/21 08:06 SP TYPE: CERV OTHR DR: Dr. Jose Connors MD Tissues: Uterine cervix, NOS Procedures: Surgery Specimen Level IV HEADER OPERATION: Colposcopy PRE-OP DIAGNOSIS: R87.612 TISSUE SUBMITTED: A ? Cervical biopsy, B - ECC MICROSCOPIC DIAGNOSIS A. 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 Moderate chronic inflammation. See comment. B. ECC: A minute fragment of metaplastic squamous epithelium and desquamated squamous epithelial cells with changes suspicious for HPV cytopathic effects. Fragments of benign endocervical mucosa with chronic inflammation. See comment. SJ:rg 06/09/2021 COMMENT A & B. Results of immunohistochemistry ([id number]) for surrogate HPV marker (p16) will be reported separately. This case has been reviewed in consultation with Dr. Gilbert who concurs with the above diagnosis.. MICROSCOPIC DESCRIPTION Slides are reviewed. GROSS DESCRIPTION A - Received in fixative is one container labeled with the patient's name and designated cervical biopsy 6 o'clock. The specimen consists of one irregular fragment of light rivers soft tissue that measures 0.4 x 0.3 x 0.1 cm. The specimen is totally submitted in one cassette. B - Received in fixative is one container labeled with the patient's name and designated ECC. The specimen consists of multiple fragments of hemorrhagic soft tissue that in aggregate measure 1 x 1 x 0.1 cm. The specimen is totally submitted in one cassette. / CARLA:lucia 06/06/21 TC:5 CPT: 19868 x2
== END ==
PROVIDERS: PCP Family Medicine; Visit Provider Obstetrics & Gynecology
DX: R87.612 Low grade squamous intraepithelial lesion on cytologic smear of cervix (LGSIL) (principal)
CPT/HCPCS: 88305; 88341; 88342

== ENCOUNTER 2021-06-24 08:54 | Outpatient (RCR) | payer MEDICAID, SELFPAY | END 2021-07-22 23:59 | LOC: LABSPEC 08:54 | PROVIDERS: PCP Family Medicine; Visit Provider Family Medicine Geriatric Medicine | DX: Z03.818 Encounter for observation for suspected exposure to other biological agents ruled out (principal) ==

== ENCOUNTER 2021-09-16 09:16 | Outpatient (RCR) | payer MEDICAID, SELFPAY | END 2021-09-22 23:59 | LOC: EMPH 09:16 | PROVIDERS: PCP Family Medicine; Visit Provider Family Medicine Geriatric Medicine | DX: Z03.818 Encounter for observation for suspected exposure to other biological agents ruled out (principal) | CPT/HCPCS: 87426 ==

== ENCOUNTER 2021-10-23 10:00 | Outpatient (RCR) | payer MEDICAID, SELFPAY | END 2021-11-20 23:59 | LOC: EMPH 10:00 | PROVIDERS: PCP Family Medicine; Visit Provider Family Medicine Geriatric Medicine | DX: Z03.818 Encounter for observation for suspected exposure to other biological agents ruled out (principal) | CPT/HCPCS: 87426 ==

== ENCOUNTER 2021-12-08 11:10 | Outpatient (CLI) | payer MEDICAID, SELFPAY ==
[2021-12-08 12:04] LABS: Color, Urine Yellow (Yellow); Glucose, Dipstick Normal (Normal); Ketone-Dipstick Negative (Negative); Leukocyte Esterase-Dipstick 25 /ul (Negative); Nitrite-Dipstick Negative (Negative); Occult Blood-Urine Negative /ul (Negative); Protein-Dipstick 15 mg/dl (Negative); Urine Bilirubin Dipstick Negative (Negative); Urine Clarity Sl. Cloudy (Clear); Urine Urobilinogen 1 mg/dl (Normal)
[2021-12-08 12:10] LABS: Absolute Lymphocyte Count 2.34 X10^3/uL (0.83-4.51); Absolute Neutrophil Count 6.3 X10^3/uL (2.0-7.7); Basophil# 0.03 X10^3/uL; Basophil% 0.3 % (0-1); Eosinophil# 0.13 X10^3/uL; Eosinophils% 1.4 % (0-5); Hemoglobin 12.6 g/dL (12.0-15.0); Lymphocyte # 2.34 X10^3/ul (0.83-4.51); Lymphocyte % 24.8 % (19-41); Mean Corp Hgb Conc 33.2 g/dL (32-36); Mean Corpuscular Hgb 29.6 pg (27.0-32.0); Mean Corpuscular Volume 89.2 fL (81-99); Mean Platelet Vol. 9.2 fl (6.2-12.0); Monocyte% 6.4 % (0-10); NRBC Flagged by Analyzer 0 % (0-5); Neutrophil # 6.29 X10^3/uL (2.7-7.7); Neutrophil % 66.7 % (47-70); Platelet Count 324 K/mm3 (150-450); RBC Distribution Width CV 12.1 % (11.6-14.6); RBC Distribution Width SD 39.1 fl (35.1-43.9); Red Blood Count 4.26 M/mm3 (4.2-5.4); White Blood Count 9.4 K/mm3 (4.4-11.0)
[2021-12-08 12:28] LABS: Amphetamine Urine VISTA NEGATIVE (<1000 ng/mL); Barbiturate Urine VISTA NEGATIVE (< 200 ng/mL); Benzodiazepine Urine VISTA NEGATIVE (< 200 ng/mL); Cocaine Urine VISTA NEGATIVE (< 300 ng/mL); Ecstacy Urine VISTA NEGATIVE (< 500 ng/mL); Methadone Urine VISTA NEGATIVE (< 300 ng/mL); PCP Urine VISTA NEGATIVE (< 25 ng/mL); THC Urine VISTA NEGATIVE (< 50 ng/mL); Vista UDS pH Range 7
[2021-12-08 12:58] LABS: HIV - WCH Non-Reactive (Nonreactive); Hepatitis B Surface Antigen Non-Reactive (Nonreactive); Hepatitis C Antibody Non-Reactive (Nonreactive); Rubella IgG Reactive (Nonreactive); Syphilis Antibodies Non-reactive
[2021-12-10 05:07] LABS: Chlamydia By Nucleic Acid AMP Negative (Negative)
[2021-12-10 08:29] LABS: Gonococcus By Nucleic Acid AMP Negative (Negative)
[2021-12-15 14:19] LABS: HPV APTIMA, High Risk Negative (Negative)
[2021-12-15 14:32] LABS: HPV Reflexed? YES, CHARGE PATIENT
== END 2021-12-08 23:59 | disposition home or self-care (01) ==
PROVIDERS: PCP Family Medicine; Visit Provider Obstetrics & Gynecology
DX: Z34.81 Encounter for supervision of other normal pregnancy, first trimester (principal)
CPT/HCPCS: 36415; 80307; 81002; 84443; 85025; 86703; 86762; 86780; 86803; 87086; 87088; 87340; 87491; 87591; 87624; 88175; G0145

== ENCOUNTER 2022-02-23 17:09 | Emergency (ER) | payer MEDICAID, SELFPAY ==
[2022-02-23 17:10] VITALS: BP 123/78; PULSE 99; RESP 16; TEMP 36.4; O2SAT 100; BMI 27.8
--- NOTE | 2022-02-23 17:26 | EDS_ITS ---
HPI History of Present Illness Chief Complaint: Numb/Ting Detail of Chief Complaint: Numbness and tingling to hands and feet that started today Informant: patient Narrative Narrative: Patient presents to the emergency department with numbness and tingling in hands and feet that started earlier today. 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 Patient states that it felt like her feet and legs and want a work right. She is not had symptoms like this before. Patient tells me that she had a seizure while in [place] on vacation last week and was started on Topamax. Patient states she had been on Topamax in the past 25 mg daily but was taken off by her neurologist as she had not had a seizure in 6 years. Patient was started on Topamax 25 mg twice a day in [place]. Patient has had 3 doses now. Patient denies recent illness or other complaints. [facility] Medical History (Updated 02/23/22 @ 18:[address] Tyson Galvez, DO) Epilepsy Home Medications topiramate 25 mg tablet (Topamax) 25 mg PO BID 02/23/22 [History Last Taken Unknown] Allergy/AdvReac Type Severity Reaction Status Date / Time hydrocodone [From Vicodin] Allergy Vomiting Verified 12/09/20 12:13 hydromorphone [From Dilaudid] Allergy Swelling Verified 12/09/20 12:13 Social History (Updated 07/10/19 @ 15:23 by Waqar DUMONT, TIM) Smoking Status: Never smoker ROS ROS ED Review of Systems ROS Unobtainable: other Constitutional Constitutional ED: Reports lethargy; Denies chills, fever(s), sweats or weight loss Eyes Eyes: Denies blurry vision, change in vision or diplopia ENT ENT ED: Denies rhinorrhea or sore throat Cardiovascular Cardiovascular: Reports chest pain and racing heartbeat; Denies orthopnea Respiratory/Chest Respiratory/Chest: Reports dyspnea and dyspnea on exertion; Denies cough, orthopnea or sputum Gastrointestinal Gastrointestinal: Denies abdominal pain, diarrhea, nausea or vomiting Genitourinary Genitourinary ED: Denies dysuria, hematuria or urinary frequency Musculoskeletal Musculoskeletal: Denies arthralgias, back pain, myalgias or neck pain Integumentary Denies abscess, Abrasions or rash Neurologic Neurologic: Reports paresthesias; Denies headache(s) or weakness Psychiatric Psychiatric: Denies anxiety, depression or suicidal thoughts Endocrine Endocrinology: Denies polydipsia, polyphagia or polyuria Hematologic/Lymphatic Hematologic/Lymphatic: Denies easy bleeding, easy bruising or lymphadenopathy Allergic/Immunologic Allergic/Immunologic ED: Denies mouth swelling, tongue swelling or urticaria EXAM Physical Exam Const Vital Signs: 02/23/22 17:10 02/23/22 17:10 Temperature 97.5 F L 97.5 F L Temperature Source Temporal Temporal Pulse Rate 99 99 Respiratory Rate 16 16 Blood Pressure 123/78 H 123/78 H Blood Pressure Mean 93 93 Pulse Ox 100 100 Oxygen Delivery Method Room Air Room Air Positive well nourished and well developed General Appearance ED: well developed and NAD HEENT Reports TM's clear and moist mucous membranes normocephalic and atraumatic; Negative for trauma or tenderness Tympanic Membrane ED: Yes TM's clear Eyes PERRL and EOMs intact bilaterally General Eye ED: Negative for pale conjunctiva or scleral icterus Neck no lymphadenopathy, supple and no JVD General: Negative for tenderness Chest Wall inspection of chest normal and palpation of chest normal Chest: Negative for tenderness Resp normal respiratory effort and clear to auscultation bilaterally Effort and Inspection: Negative for respiratory distress or pain with movement Auscultation: Negative for rhonchi, wheezes or diminished lung sounds Cardio regular rate, regular rhythm, S1 normal heart sound, S2 normal heart sound and no murmurs Peripheral Pulses: pulses 2+ throughout GI normal to inspection, nondistended, normoactive bowel sounds, soft to palpation, non-tender, non-distended and no masses Back/Spine no CVA tenderness and no thoracic nor lumbar tenderness Extremity normal to inspection General Extremety ED: Negative for edema General Extremity: Negative for edema Neuro oriented x3, CN's II-XII intact bilaterally, no sensory deficits noted and gait normal Sensorium / Orientation: awake, alert, oriented to person, oriented to place and oriented to time Motor Exam: strength 5/5 throughout and strength abnormal Psych mental status grossly normal Skin no rashes or lesions noted and no wounds MDM MDM MDM Narrative Medical decision making narrative: Electrolytes were normal. heart tones were 140. At this point it is my believe her symptoms are likely due to Topamax side effect. Patient is only had 3 doses and she is on a higher dose than she was when she was taking the seizure medication at 25 mg a day and this time around apparently was started at 50 mg a day. My advice the patient was that she go back to 25 mg a day and discuss the Topamax with her neurologist tomorrow. Given that she is I did explain to her that Topamax is category D in however most of the side effects typically occur in the first trimester and patient is beyond that currently. Patient also to discuss with her DRUG AND ALCOHOL COUNSELLOR. Lab Data Labs: Laboratory Results - last 24 hr 02/23/22 17:35 Sodium 139 Potassium 3.8 Chloride 107 Carbon Dioxide 23.0 Anion Gap 9 BUN 8 Creatinine 0.63 Estim Creat Clear Calc 108.90 Est GFR (MDRD) Af Amer 148 Est GFR (MDRD) Non-Af 122 BUN/Creatinine Ratio 12.7 Glucose 93 Calcium 9.4 Magnesium 1.8 Discharge Plan Triage Chief Complaint: Numb/Ting ED Provider: Tyson Galvez Dx/Rx/DC Orders Clinical Impression: Paresthesias, Drug side effects Instructions: ED ADVERSE DRUG REACTION Allergic, ED Paraesthesias Prescriptions: No Action topiramate [Topamax] 25 mg Tablet 25 mg PO BID Primary Care Provider: oJse Connors Referrals: Jose Connors MD [Primary Care Provider] - Activity Restrictions/Additional Instructions: Speak with your neurologist and DRUG AND ALCOHOL COUNSELLOR regarding continuing the Topamax. Decrease your dose to 25 mg daily. Disposition Disposition: Home, Self Care
[2022-02-23 18:04] LABS: Anion Gap 9 (5-15); BUN 8 mg/dL (7-18); BUN/Creat Ratio 12.7 RATIO (10-20); Calcium,Total 9.4 mg/dL (8.5-10.1); Chloride 107 mmol/L (98-107); Creatinine, Serum 0.63 mg/dL (0.55-1.02); EST Glomerular Filtration Rate 122 mL/min (>60); Est Glom Filt Rate - Afr Amer 148 mL/min (>60); Glucose 93 mg/dL (74-106); Magnesium 1.8 mg/dL (1.6-2.6); Potassium 3.8 mmol/L (3.5-5.1); Sodium Level 139 mmol/L (136-145)
== END 2022-02-23 18:14 | disposition home or self-care (01) ==
PROVIDERS: Emergency Provider Emergency Medicine; PCP Family Medicine; Visit Provider Emergency Medicine
DX: O9A.219 Injury, poisoning and certain other consequences of external causes complicating pregnancy, unspecified trimester (principal); G40.909 Epilepsy, unspecified, not intractable, without status epilepticus; O99.350 Diseases of the nervous system complicating pregnancy, unspecified trimester; R20.2 Paresthesia of skin; T42.6X5A Adverse effect of other antiepileptic and sedative-hypnotic drugs, initial encounter; Z3A.00 Weeks of gestation of pregnancy not specified
CPT/HCPCS: 80048; 83735; 99283; A4216

== ENCOUNTER → 2022-04-06 | Outpatient (CLI) | payer MEDICAID, SELFPAY ==
[2022-04-06 16:31] LABS: Absolute Lymphocyte Count 2.09 X10^3/uL (0.83-4.51); Absolute Neutrophil Count 8.2 X10^3/uL (2.0-7.7); Basophil# 0.02 X10^3/uL; Basophil% 0.2 % (0-1); Eosinophil# 0.14 X10^3/uL; Eosinophils% 1.2 % (0-5); Hemoglobin 10.6 g/dL (12.0-15.0); Lymphocyte # 2.09 X10^3/ul (0.83-4.51); Lymphocyte % 18.6 % (19-41); Mean Corp Hgb Conc 33.1 g/dL (32-36); Mean Corpuscular Hgb 30.6 pg (27.0-32.0); Mean Corpuscular Volume 92.5 fL (81-99); Mean Platelet Vol. 9.1 fl (6.2-12.0); Monocyte# 0.74 X10^3/uL; Monocyte% 6.6 % (0-10); NRBC Flagged by Analyzer 0 % (0-5); Neutrophil # 8.21 X10^3/uL (2.7-7.7); Neutrophil % 72.9 % (47-70); Platelet Count 306 K/mm3 (150-450); RBC Distribution Width CV 12.4 % (11.6-14.6); RBC Distribution Width SD 41.1 fl (35.1-43.9); Red Blood Count 3.46 M/mm3 (4.2-5.4); White Blood Count 11.3 K/mm3 (4.4-11.0)
[2022-04-06 16:42] LABS: Anion Gap 5 (5-15); BUN 7 mg/dL (7-18); BUN/Creat Ratio 12.2 RATIO (10-20); Calcium,Total 8.9 mg/dL (8.5-10.1); Chloride 107 mmol/L (98-107); Creatinine, Serum 0.58 mg/dL (0.55-1.02); EST Glomerular Filtration Rate 136 mL/min (>60); Est Glom Filt Rate - Afr Amer 165 mL/min (>60); Glucose 114 mg/dL (74-106); Potassium 3.7 mmol/L (3.5-5.1); Sodium Level 138 mmol/L (136-145)
== END | disposition home or self-care (01) ==
LOC: WOBLAB 15:19
PROVIDERS: PCP Family Medicine; Visit Provider Student in an Organized Health Care Education/Training Program
DX: R42 Dizziness and giddiness (principal)
CPT/HCPCS: 36415; 80048; 85025

== ENCOUNTER → 2022-05-06 | Outpatient (CLI) | payer MEDICAID, SELFPAY ==
[2022-05-06 14:03] LABS: Absolute Lymphocyte Count 2.47 X10^3/uL (0.83-4.51); Absolute Neutrophil Count 6.3 X10^3/uL (2.0-7.7); Basophil# 0.02 X10^3/uL; Basophil% 0.2 % (0-1); Eosinophil# 0.22 X10^3/uL; Eosinophils% 2.3 % (0-5); Hemoglobin 9.8 g/dL (12.0-15.0); Lymphocyte # 2.47 X10^3/ul (0.83-4.51); Lymphocyte % 25.4 % (19-41); Mean Corp Hgb Conc 32.7 g/dL (32-36); Mean Corpuscular Hgb 29.3 pg (27.0-32.0); Mean Corpuscular Volume 89.6 fL (81-99); Mean Platelet Vol. 8.5 fl (6.2-12.0); Monocyte# 0.69 X10^3/uL; Monocyte% 7.1 % (0-10); NRBC Flagged by Analyzer 0 % (0-5); Neutrophil # 6.26 X10^3/uL (2.7-7.7); Neutrophil % 64.2 % (47-70); Platelet Count 299 K/mm3 (150-450); RBC Distribution Width SD 38.6 fl (35.1-43.9); Red Blood Count 3.35 M/mm3 (4.2-5.4); White Blood Count 9.7 K/mm3 (4.4-11.0)
[2022-05-06 14:07] LABS: Glucose Challenge Gest 1H 50g 99 mg/dL (70-140)
== END | disposition home or self-care (01) ==
LOC: WOBLAB 13:29
PROVIDERS: PCP Family Medicine; Visit Provider Obstetrics & Gynecology
DX: Z34.82 Encounter for supervision of other normal pregnancy, second trimester (principal)
CPT/HCPCS: 36415; 82950; 85025

== ENCOUNTER → 2022-06-10 | Outpatient (CLI) | payer MEDICAID, SELFPAY | END | disposition home or self-care (01) | LOC: LABSPEC 14:06 | PROVIDERS: PCP Family Medicine; Visit Provider Obstetrics & Gynecology | DX: R30.0 Dysuria (principal) | CPT/HCPCS: 87086 ==

== ENCOUNTER → 2022-07-01 | Outpatient (CLI) | payer MEDICAID, SELFPAY ==
[2022-07-01 13:56] LABS: Absolute Lymphocyte Count 3.44 X10^3/uL (0.83-4.51); Absolute Neutrophil Count 7.8 X10^3/uL (2.0-7.7); Basophil# 0.03 X10^3/uL; Basophil% 0.2 % (0-1); Eosinophil# 0.13 X10^3/uL; Eosinophils% 1.1 % (0-5); Hematocrit 30.7 % (37-47); Hemoglobin 9.3 g/dL (12.0-15.0); Lymphocyte # 3.44 X10^3/ul (0.83-4.51); Lymphocyte % 28.4 % (19-41); Mean Corp Hgb Conc 30.3 g/dL (32-36); Mean Corpuscular Hgb 26.3 pg (27.0-32.0); Mean Platelet Vol. 8.8 fl (6.2-12.0); Monocyte# 0.64 X10^3/uL; Monocyte% 5.3 % (0-10); NRBC Flagged by Analyzer 0 % (0-5); Neutrophil # 7.75 X10^3/uL (2.7-7.7); Neutrophil % 64.1 % (47-70); Platelet Count 275 K/mm3 (150-450); RBC Distribution Width CV 14.4 % (11.6-14.6); RBC Distribution Width SD 44.9 fl (35.1-43.9); Red Blood Count 3.53 M/mm3 (4.2-5.4); White Blood Count 12.1 K/mm3 (4.4-11.0)
== END | disposition home or self-care (01) ==
LOC: WOBLAB 13:47
PROVIDERS: PCP Family Medicine; Visit Provider Obstetrics & Gynecology
DX: Z34.83 Encounter for supervision of other normal pregnancy, third trimester (principal); Z36.85 Encounter for antenatal screening for Streptococcus B
CPT/HCPCS: 36415; 85025; 87081

== ENCOUNTER → 2022-07-10 | Outpatient (CLI) | payer MEDICAID, SELFPAY ==
[2022-07-10 08:34] VITALS: BP 116/61; PULSE 104; RESP 16; TEMP 36.2; O2SAT 99; BMI 31.1
[2022-07-10] MEDS: 0.9% NaCl Peripheral Flush Adult/Peds IV (08:51)
[2022-07-10] MEDS: 0.9% NaCl IVPB Med Flush (250 mL) 15 ML IV (08:51)
[2022-07-10 10:02] VITALS: BP 111/71; PULSE 103; RESP 16; O2SAT 98
== END | disposition home or self-care (01) ==
LOC: MEDOUTP 08:27
PROVIDERS: PCP Family Medicine; Referring Provider Obstetrics & Gynecology; Visit Provider Obstetrics & Gynecology
DX: O99.013 Anemia complicating pregnancy, third trimester (principal)
CPT/HCPCS: 96365; J1756; J7050; A4216

== ENCOUNTER 2022-07-21 04:55 | Inpatient (IN) | payer MEDICAID, SELFPAY ==
[2022-07-21] VITALS (18 sets, daily range): BP systolic 88–132; BP diastolic 51–66; PULSE 81–115; RESP 14–18; TEMP 36.2–37.4; O2SAT 96–100; BMI 32.1
[2022-07-21] MEDS: Lactated Ringers 1,000 ML 999 ML IV (05:20)
[2022-07-21 05:40] LABS: Absolute Lymphocyte Count 3.42 X10^3/uL (0.83-4.51); Absolute Neutrophil Count 6.9 X10^3/uL (2.0-7.7); Basophil# 0.03 X10^3/uL; Basophil% 0.3 % (0-1); Eosinophil# 0.15 X10^3/uL; Eosinophils% 1.4 % (0-5); Hematocrit 30.9 % (37-47); Hemoglobin 9.5 g/dL (12.0-15.0); Lymphocyte # 3.42 X10^3/ul (0.83-4.51); Lymphocyte % 30.8 % (19-41); Mean Corp Hgb Conc 30.7 g/dL (32-36); Mean Corpuscular Hgb 26.3 pg (27.0-32.0); Mean Corpuscular Volume 85.6 fL (81-99); Mean Platelet Vol. 9.5 fl (6.2-12.0); Monocyte# 0.55 X10^3/uL; NRBC Flagged by Analyzer 0 % (0-5); Neutrophil # 6.86 X10^3/uL (2.7-7.7); Neutrophil % 61.7 % (47-70); Platelet Count 249 K/mm3 (150-450); RBC Distribution Width SD 47.9 fl (35.1-43.9); Red Blood Count 3.61 M/mm3 (4.2-5.4); White Blood Count 11.1 K/mm3 (4.4-11.0)
[2022-07-21] MEDS: Lactated Ringers 1,000 ML 200 ML IV (06:30)
--- NOTE | 2022-07-21 06:48 | PCM.HP.BLA ---
History and Physical Date of Admission: 07/21/22 HPI: 26-year-old G3, P2 at 39/1-week, [place] 07/27/2022 by first trimester ultrasound, admitted for repeat section. She denies leaking of fluid, vaginal bleeding, contractions. Reports movement. Denies headache or vision changes, chest pain or shortness of breath, nausea or vomiting, diarrhea constipation, fevers or chills. complicated by: Repeat , anemia status post Venofer CAREER AND GUIDANCE COUNSELOR history: G1: 41-week for CPD G2: 39-week repeat G3: Current Medical history: 1. Anemia Surgical history: 1. section x2 2. Tonsillectomy and adenoidectomy Medications: None Allergies: Vicodin and Dilaudid causes vomiting Family history: Father had Factor V, otherwise noncontributory Social history: Denies tobacco, alcohol, drug use View system: Negative otherwise stated above Physical exam Vitals pending General: No acute distress HEENT: Normal cephalic/atraumatic , PERRLA Cardiorespiratory: No increased effort Abdomen: Soft, nontender, gravid Extremities: Minimal edema Neurologic: Cranial nerves II through XII grossly intact, no focal deficits Musculoskeletal: Strength out of 5 throughout all extremities FHR: 140/mod delfin/+accel/no decel Torrey: rare ctx Assessment/plan: 26-year-old G3, P2 at 39/1-week, CAT[place] 07/27/2022 by first trimester ultrasound, admitted for repeat section. complicated by: Repeat , anemia status post Venofer ?Admit to labor and delivery for repeat section. 2 g Ancef preoperatively.
[2022-07-21] MEDS: Acetaminophen 500 MG Tablet 1000 MG PO ×3 (07:24→19:21)
[2022-07-21] MEDS: Sodium Citrate/Citric Acid 30 ML UDC PO (07:24)
[2022-07-21] MEDS: Cefazolin 2 GM in 0.9% Normal Saline 100 ML IV (07:31)
--- NOTE | 2022-07-21 08:18 | EX.PCM.OBRPT ---
Details Operative Information Date of Procedure: 07/21/22 Pre-Operative Diagnosis: History of section, term Post-Operative Diagnosis: History of section, term Indications Narrative: Procedure: Repeat low transverse section Via Pfannenstiel incision Surgeon: Emanuel Schaeffer MD Anesthesia: Spinal EBL: 700 cc Urine output: Minimal IV fluids: 1000 cc Complications: None Specimen: None Findings: Male in vertex position, Apgars 9/9. Normal uterus, tubes, and ovaries. Consent: Patient at term with history of section for repeat section Via Pfannenstiel incision. Patient understands risk of the procedure include but are not limited to visceral or vascular injury, prolonged hospitalization, blood loss and need for transfusion, reoperation. Patient state understanding wish to proceed. All questions were answered and consent was signed. Procedure: Patient was brought back to the OR where spinal anesthesia was found to be adequate. 2 g of Ancef were given for infection prophylaxis. Patient was prepared and draped in supine position with leftward tilt. A Pfannenstiel incision was made at the skin with a scalpel. The incision was carried down to the fascia with a scalpel. The fascia was excised and extended laterally. Inferior aspect of the fascia was grasped with a clamp and the underlying rectus and pyramidalis muscle were dissected off sharply with Lizarraga scissors. In a similar aspect the superior aspect of the fascia was grasped with a clamp and the underlying rectus muscle dissected off sharply. Rectus muscle was dissected the midline down to the level of the pubic symphysis. Preperitoneal fatty tissue was noted and peritoneum was entered bluntly. Peritoneum was extended superiorly and inferiorly with good visualization of bladder. Bladder blade was inserted and vesicouterine peritoneum was identified. Low transverse hysterotomy was made. Hand was placed in the incision and gentle fundal pressure was applied once the head was brought into the incision and the bladder blade was removed. Head and shoulders were delivered with ease. Cord was cut and clamped. They was handed off to nursing. Placenta was delivered via cord traction and fundal massage. Uterus was exteriorized and wiped out with dry laparotomy sponge in order to remove remaining placental membranes. Uterus was closed in a continuous running fashion. Good hemostasis was noted. Uterus was placed back into the abdominal cavity and incision was reinspected, good hemostasis was noted. Rober was placed over the hysterotomy incision. Fascia was closed in a continuous running fashion with PDS suture. Subcutaneous irrigation was performed. Good hemostasis was noted. Skin was closed in a subcuticular fashion. All counts were correct x2. Patient tolerated procedure well and was brought to recovery in stable condition. hvac sales engineer #1: Audi Villarreal
[2022-07-21] MEDS: Oxytocin 15 Units/NS 250ml 15 UNITS/250 ML IV.SOLN 83 UNITS IV (08:40)
[2022-07-21] MEDS: Ketorolac 30 MG/ML Syringe IV ×3 (09:15→21:27)
--- NOTE | 2022-07-21 09:36 | NURSING ---
0346 d/t to history of seizures- seizure pads applied to bed rails
[2022-07-21] MEDS: DiphenhydrAMINE 25 MG Capsule PO (10:31)
[2022-07-21] MEDS: Lactated Ringers 1,000 ML 100 ML IV (11:45)
[2022-07-21] MEDS: Enoxaparin 40 MG/0.4 ML Syringe SC (21:27)
[2022-07-22] VITALS (7 sets, daily range): BP systolic 89–98; BP diastolic 44–65; PULSE 84–107; RESP 14–16; TEMP 36.8–37.1; O2SAT 96–99
[2022-07-22] MEDS: Acetaminophen 500 MG Tablet 1000 MG PO ×4 (00:58→19:25)
[2022-07-22] MEDS: DiphenhydrAMINE 25 MG Capsule PO (03:29)
[2022-07-22] MEDS: Ketorolac 30 MG/ML Syringe IV (03:30)
[2022-07-22 05:12] LABS: Hematocrit 23.9 % (37-47); Hemoglobin 7.7 g/dL (12.0-15.0); Mean Corp Hgb Conc 32.2 g/dL (32-36); Mean Corpuscular Hgb 27.6 pg (27.0-32.0); Mean Corpuscular Volume 85.7 fL (81-99); Mean Platelet Vol. 9.2 fl (6.2-12.0); Platelet Count 240 K/mm3 (150-450); Red Blood Count 2.79 M/mm3 (4.2-5.4); White Blood Count 16.4 K/mm3 (4.4-11.0)
--- NOTE | 2022-07-22 07:05 | PCM.PN.OB ---
Subjective Subjective no complaints. Pain well controlled Objective Data Objective Data Vital Signs: Vital Signs Temp Pulse Resp BP Pulse Ox O2 Del Method 98.8 F 84 16 92/51 L 96 Room Air 07/22/22 03:34 07/22/22 03:34 07/22/22 03:34 07/22/22 03:34 07/22/22 03:34 07/22/22 03:34 Oxygen Delivery Method Room Air Weight: 175 lb 6.4 oz Body Mass Index (BMI) 32.1 Intake & Output: Intake and Output for Last 24 Hours 07/20/22 07/21/22 07/22/22 23:59 23:59 23:59 Intake Total 4085 / 4085 Output Total 1100 / 1100 250 / 250 Balance 2985 / 2985 -250 / -250 Lab / Micro Data Result Diagrams: 07/22/22 05:03 Labs: Laboratory Results - last 24 hr 07/21/22 05:20: Blood Type O POSITIVE, Antibody Screen NEGATIVE 07/22/22 05:03: WBC 16.4 H, RBC 2.79 L, Hgb 7.7 L, Hct 23.9 L, MCV 85.7, MCH 27.6, MCHC 32.2, RDW Std Deviation 48.0 H, RDW Coeff of Keeley 16.0 H, Plt Count 240, MPV 9.2 Physical Exam Const alert, oriented x3, no apparent distress, average body habitus, healthy appearing and well nourished HEENT normocephalic and moist oral mucous membranes Eyes PERRL Neck full ROM Resp normal respiratory effort, no retractions and no use of accessory muscles GI GI Narrative: Soft, nontender, bandage clean dry and intact Extremity normal to inspection, full ROM and no clubbing, cyanosis or edema Neuro moves all extremities and no focal motor deficits Psych mental status grossly normal, affect normal, speech normal and activity/motor behavior normal Assessment & Plan (1) delivery delivered: PLAN: Postop day 1 status post repeat section. Breast-feeding. Pain well controlled. Patient with allergic reaction to adhesive tapes, given instructions okay to take off bandage and given instructions for post bandage care. Likely home tomorrow
[2022-07-22] MEDS: oxyCODONE 5 MG Tablet PO ×3 (09:19→20:56)
[2022-07-22] MEDS: Enoxaparin 40 MG/0.4 ML Syringe SC (10:41)
[2022-07-22] MEDS: Ferrous Sulfate 325 MG Tablet PO ×2 (10:42→22:38)
[2022-07-22] MEDS: Senna/Docusate Sodium 1 Tablet PO (10:42)
[2022-07-22] MEDS: Ibuprofen 600 MG Tablet PO ×3 (10:42→22:39)
[2022-07-22] MEDS: Prenatal Vits Tablet 1 TABLET PO (13:46)
[2022-07-22] MEDS: 0.9% Normal Saline 1,000 ML 100 ML IV (20:22)
[2022-07-22] MEDS: 0.9% Saline Lock 10 ML Syringe IV (20:33)
[2022-07-23] VITALS (7 sets, daily range): BP systolic 90–107; BP diastolic 55–65; PULSE 88–102; RESP 16–18; TEMP 36.3–36.9; O2SAT 97–99
[2022-07-23] MEDS: oxyCODONE 5 MG Tablet PO ×4 (01:06→13:27)
[2022-07-23] MEDS: Acetaminophen 500 MG Tablet 1000 MG PO ×3 (01:32→13:27)
--- NOTE | 2022-07-23 01:41 | NURSING ---
Upon entering pt room around 0050, pt in increasing amount of pain and requesting prn oxy for 10/10 pain. Upon entering room at 0100 with Oxycodone, pt stated she was nauseas and when asked, says related to pain. Offered PRN IV zofran, pt wanted IV out from pain and discomfort and asked for desi rochelle and crackers in the mean time.
--- NOTE | 2022-07-23 04:27 | NURSING ---
When in room for 0240 rounds, pt stated pain was more tolerable and nausea had subsided as her pain got better.
[2022-07-23] MEDS: Ibuprofen 600 MG Tablet PO ×2 (04:39→10:34)
--- NOTE | 2022-07-23 08:36 | PCM.DC.BLA ---
Discharge Summary Date of Admission: 07/21/22 Date of Discharge: 07/23/22 Summary: Patient arrived on 07/21/2022 for repeat section at term. Repeat section on 07/21/2022 performed. Patient with acute on chronic anemia given Venofer 200 mg IV on 07/22. Then given 1 unit packed red blood cells on 07/23/2022 with hemoglobin 7.7 and symptomatic. And discharged home on 07/23/2022 Meaningful Use Info Meaningful Use Diagnoses (Choose all that apply): None applicable Discharge Plan Admission Admit Date/Time: 07/21/22 04:55 Primary Reason for Your Visit: Repeat section Attending Provider: Emanuel Schaeffer Primary Care Provider: Jose Connors Instructions Additional Instructions / Restrictions: Regular diet. Okay to shower. No tub baths for 2 to 3 weeks. No intercourse for 4 to 6 weeks. No lifting over 25 pounds for 2 to 3 weeks. Call if fevers, chills, chest pain, shortness of breath. Follow-up 2 weeks postoperatively Discharge Orders/Prescriptions Prescriptions: New oxycodone 5 mg Tablet 5 mg PO Q6H PRN PRN (Reason: Pain Score 7-10) 4 Days Qty: 16 0RF Continued B12 1 tab PO/SL DAILY promethazine 25 mg Tablet 25 mg PO PRN PRN (Reason: Nausea) 1 tab PO/SL DAILY ferrous sulfate 1 tab PO/SL BID Referrals / Follow Up: Jose Connors MD [Primary Care Provider] - Disposition Disposition (needs filled in before D/C Order can be placed): Home, Self Care
--- NOTE | 2022-07-23 08:37 | PCM.PN.OB ---
Subjective Subjective Patient feels tired. Overall no weakness. Denies dizziness or chest pain or shortness of breath Objective Data Objective Data Vital Signs: Vital Signs Temp Pulse Resp BP Pulse Ox O2 Del Method 98.5 F 102 H 18 90/59 L 99 Room Air 07/23/22 01:15 07/23/22 01:15 07/23/22 01:15 07/23/22 01:15 07/22/22 13:52 07/22/22 13:52 Oxygen Delivery Method Room Air Weight: 175 lb 6.4 oz Body Mass Index (BMI) 32.1 Intake & Output: Intake and Output for Last 24 Hours 07/21/22 07/22/22 07/23/22 23:59 23:59 23:59 Intake Total 4085 / 4085 173.33 / 173.33 Output Total 1100 / 1100 250 / 250 Balance 2985 / 2985 -76.67 / -76.67 Lab / Micro Data Result Diagrams: 07/22/22 05:03 Physical Exam Const alert, oriented x3, no apparent distress, average body habitus, healthy appearing and well nourished HEENT normocephalic and moist oral mucous membranes Eyes PERRL Neck full ROM Resp normal respiratory effort, no retractions and no use of accessory muscles GI GI Narrative: Soft, nontender, incision clean dry and intact Extremity normal to inspection, full ROM and no clubbing, cyanosis or edema Neuro moves all extremities and no focal motor deficits Psych mental status grossly normal, affect normal, speech normal and activity/motor behavior normal Assessment & Plan (1) delivery delivered: PLAN: Postop day 2 status post repeat section. Breast-feeding. Pain well controlled. Acute on chronic anemia status post Venofer 200 mg IV. Patient still with some weakness, will transfuse 1 unit of packed red blood cells now. Patient educated on risk benefits alternatives of transfusion, elects for 1 unit of packed red blood cells. If symptoms improve okay to discharge home today with no signs of bleeding, and repeat hemoglobin will not change control analyst
[2022-07-23] MEDS: 0.9% Saline Lock 10 ML Syringe IV ×3 (09:18→13:29)
[2022-07-23] MEDS: Enoxaparin 40 MG/0.4 ML Syringe SC (10:35)
[2022-07-23] MEDS: Prenatal Vits Tablet 1 TABLET PO (10:35)
[2022-07-23] MEDS: Senna/Docusate Sodium 1 Tablet PO (10:35)
[2022-07-23] MEDS: Ferrous Sulfate 325 MG Tablet PO (10:35)
--- NOTE | 2022-07-23 12:04 | NURSING ---
Tolerating blood without complaint.
== END 2022-07-23 14:30 | disposition home or self-care (01) | DRG 540 ==
PROVIDERS: Admitting Provider Obstetrics & Gynecology; PCP Family Medicine; Referring Provider Obstetrics & Gynecology; Visit Provider Obstetrics & Gynecology
PROC: 10D00Z1 Extraction of Products of Conception, Low, Open Approach (ICD-10-PCS; CPT 59514; principal; 2022-07-21 06:55)
DX: O34.211 Maternal care for low transverse scar from previous cesarean delivery (principal); O99.02 Anemia complicating childbirth; Z37.0 Single live birth; Z3A.39 39 weeks gestation of pregnancy
CPT/HCPCS: 59025; 59050; 85025; 85027; 86850; 86900; 86901; 86920; 99218; 99251; J1756; J7030; J7040; J7120; P9016; A4216; G0378; G0463; J2405

== ENCOUNTER → 2022-08-04 | Outpatient (CLI) | payer MEDICAID, SELFPAY ==
[2022-08-04 14:09] LABS: Absolute Lymphocyte Count 3.26 X10^3/uL (0.83-4.51); Absolute Neutrophil Count 5.7 X10^3/uL (2.0-7.7); Basophil# 0.07 X10^3/uL; Basophil% 0.7 % (0-1); Eosinophil# 0.38 X10^3/uL; Eosinophils% 3.8 % (0-5); Hematocrit 40.3 % (37-47); Hemoglobin 12.7 g/dL (12.0-15.0); Lymphocyte # 3.26 X10^3/ul (0.83-4.51); Lymphocyte % 32.7 % (19-41); Mean Corp Hgb Conc 31.5 g/dL (32-36); Mean Corpuscular Hgb 27.5 pg (27.0-32.0); Mean Corpuscular Volume 87.4 fL (81-99); Mean Platelet Vol. 8.4 fl (6.2-12.0); Monocyte# 0.52 X10^3/uL; Monocyte% 5.2 % (0-10); NRBC Flagged by Analyzer 0 % (0-5); Neutrophil # 5.72 X10^3/uL (2.7-7.7); Neutrophil % 57.4 % (47-70); Platelet Count 436 K/mm3 (150-450); RBC Distribution Width CV 17.6 % (11.6-14.6); RBC Distribution Width SD 55.7 fl (35.1-43.9); Red Blood Count 4.61 M/mm3 (4.2-5.4)
[2022-08-04 15:35] LABS: Anion Gap 8 (5-15); BUN 10 mg/dL (7-18); BUN/Creat Ratio 11.2 RATIO (10-20); Calcium,Total 8.7 mg/dL (8.5-10.1); Chloride 105 mmol/L (98-107); Creatinine, Serum 0.89 mg/dL (0.55-1.02); EST Glomerular Filtration Rate 82 mL/min (>60); Est Glom Filt Rate - Afr Amer 99 mL/min (>60); Glucose 94 mg/dL (74-106); Potassium 3.5 mmol/L (3.5-5.1); Sodium Level 139 mmol/L (136-145); T4 Free Direct 1.15 ng/dL (0.76-1.46); Thyroid Stim Hormone (TSH) 0.58 uIU/mL (0.358-3.74)
== END | disposition home or self-care (01) ==
LOC: WOBLAB 13:52
PROVIDERS: PCP Family Medicine; Visit Provider Obstetrics & Gynecology
DX: Z48.816 Encounter for surgical aftercare following surgery on the genitourinary system (principal)
CPT/HCPCS: 36415; 80048; 84439; 84443; 85025

== ENCOUNTER → 2023-03-05 | Outpatient (CLI) | payer MEDICAID, SELFPAY ==
[2023-03-05 12:25] LABS: Hematocrit 43.5 % (37-47); Hemoglobin 13.8 g/dL (12.0-15.0); Mean Corp Hgb Conc 31.7 g/dL (32-36); Mean Corpuscular Hgb 28.3 pg (27.0-32.0); Mean Corpuscular Volume 89.1 fL (81-99); Mean Platelet Vol. 9.1 fl (6.2-12.0); Platelet Count 408 K/mm3 (150-450); RBC Distribution Width CV 12.3 % (11.6-14.6); Red Blood Count 4.88 M/mm3 (4.2-5.4)
[2023-03-05 13:04] LABS: Estradiol 67.5 pg/mL; Follicle Stimulating Hormone 4.9 mIU/mL; Luteinizing Hormone 3.9 mIU/mL
[2023-03-10 16:15] LABS: HPV Reflexed? NOT INDICATED
[2023-03-11 14:10] LABS: Testosterone Free 0.9 pg/mL (0.0-4.2)
== END | disposition home or self-care (01) ==
LOC: LAB 11:42
PROVIDERS: PCP Nurse Practitioner Family; Referring Provider Obstetrics & Gynecology; Visit Provider Obstetrics & Gynecology
DX: N93.9 Abnormal uterine and vaginal bleeding, unspecified (principal); Z12.4 Encounter for screening for malignant neoplasm of cervix
CPT/HCPCS: 36415; 82670; 83001; 83002; 84402; 85027; 88175; G0145

== ENCOUNTER 2023-04-12 07:38 | Day surgery (SDC) | payer MEDICAID, SELFPAY ==
[2023-04-07 11:42] LABS: Hematocrit 40.4 % (37-47); Hemoglobin 12.8 g/dL (12.0-15.0); Mean Corp Hgb Conc 31.7 g/dL (32-36); Mean Corpuscular Volume 88.4 fL (81-99); Platelet Count 375 K/mm3 (150-450); RBC Distribution Width CV 12.4 % (11.6-14.6); RBC Distribution Width SD 40.1 fl (35.1-43.9); Red Blood Count 4.57 M/mm3 (4.2-5.4); White Blood Count 7.5 K/mm3 (4.4-11.0)
[2023-04-08 09:38] LABS: International Normalized Ratio 0.9; Prothrombin Time (Protime)PT. 11.8 SECONDS (11.7-14.9)
[2023-04-08 09:39] LABS: Partial Thromboplast Time 24.9 Seconds (24.1-36.2)
[2023-04-12] VITALS (7 sets, daily range): BP systolic 104–122; BP diastolic 65–78; PULSE 83–109; RESP 16–18; TEMP 36.6–37.2; O2SAT 95–100; BMI 31.1
[2023-04-12 08:12] LABS: Internal QC Validated? YES +Cl - CLEAR BKGD; Pregnancy, Urine Negative Negative
[2023-04-12] MEDS: Lactated Ringers 1,000 ML 15 ML IV (08:12)
--- NOTE | 2023-04-12 09:30 | EMB_PTH ---
PATIENT: VANESSA SANFORD LOC: [facility] [place] U#:[id number] AGE/SX: 27/F ROOM: RE04/12/[address]: Dr. Emanuel Schaeffer MD : 1995 BED: DIS: 04/12/2023 SPEC #: [id number] RECD: 04/12/23 13:28 STATUS: BRIDGET WONG #: [id number] JASON: 04/12/23 09:[address]: Emanuel Schaeffer DEPT: SURGICAL PATHOLOGY RECD BY: Yanely Wall ENTERED: 04/12/23 13:29 SP TYPE: ENDOM BX/C ARACELI DR: Azul Huggins, AUREA-C Tissues: A - Endometrium, NOS B - Fallopian tube Procedures: Surgery Specimen Level II Surgery Specimen Level IV HEADER OPERATION: Hysteroscopy, D & C arcadio Harris tubal ligation PRE-OP DIAGNOSIS: Abnormal uterine bleeding, sterilization TISSUE SUBMITTED: A - Endometrial curettings, B - Bilateral fallopian tubes MICROSCOPIC DIAGNOSIS A. Endometrium, curettings: Secretory endometrium. Rare fragments of benign superficial squamous mucosa and endocervical mucosa. B. Right and left fallopian tubes, bilateral salpingectomies: Complete cross-sections of fallopian tubes with no significant pathologic change. AM:lucia 04/13/2023 MICROSCOPIC DESCRIPTION Slides are reviewed. GROSS DESCRIPTION A - Received in fixative is one container labeled with the patient's name and designated endometrial curettings. The specimen consists of multiple irregular fragments of light rivers soft tissue that in aggregate measure 2.2 x 2.0 x 0.2 cm. The specimen is totally submitted in one cassette. B - Received in fixative is one container labeled with the patient's name and designated bilateral fallopian tubes. The specimen consists of two fallopian tubes with an average length of 6.0 cm and has an average diameter of 1.0 cm. Both fallopian tubes have normal fimbriated ends. No mass lesions are identified. Last Repairer sections are submitted in two cassettes as follows: 1 - one fallopian tube, 2??the other fallopian tube. / AM:lucia 04/12/2023 TC:5 CPT: 99640, 78165 x2
--- NOTE | 2023-04-12 09:55 | PCM.HP.BLA ---
History and Physical Date of Admission: 04/12/23 Chief complaint: Abnormal uterine bleeding desires permanent sterilization History present illness: 27-year-old scheduled for hysteroscopy, dilation curettage, endometrial ablation, laparoscopic tubal ligation for abnormal uterine bleeding and desires permanent sterilization. No medical changes since last seen. All questions answered and consent signed. Obstetric history: with a history of 3 sections Past medical history: Hypothyroid Medications: Synthroid Allergies: Dilaudid, Vicodin Past surgical history: section x3, tonsils and adenoids Social history: Denies smoking, alcohol use, drug use Family history: Denies history DVT or PE Review of systems: Besides above pertinent positives a full review of systems was performed and found to be negative Physical exam: Vitals: Blood pressure 104/78 pulse 109 respiratory rate 16 temperature 97.9 ?F SPO2 100% on room air General: Normal-appearing no acute distress HEENT: Normocephalic/atraumatic no cervical lymphadenopathy Cardiac/respiratory: No use of accessory muscles, nonlabored breathing Abdomen: Soft, nontender, nondistended Extremities: No peripheral edema normal peripheral pulses Psych: Normal affect and remainder nonpressured speech Labs: Urine test negative Assessment and plan: 27-year-old scheduled for hysteroscopy, dilation curettage, endometrial ablation, laparoscopic tubal ligation for abnormal uterine bleeding and desires permanent sterilization. Patient understands risk of the procedure include but are not limited to visceral or vascular injury, prolonged hospitalization, blood loss and need for transfusion, reoperation. Patient state understanding and wished to proceed. All questions were answered and consent was signed.
--- NOTE | 2023-04-12 11:40 | PCM.DC ---
Discharge Instructions Diet Discharge Diet: No restrictions Activity Discharge Activity: Return to Normal Activity, May Drive, May Shower and - (No tub baths for 2 weeks) May resume sexual activity in: 6-8 weeks Lifting Restrictions: No lifting over 25 pounds for 2 to 3-week Dressing / Incision Call your doctor if your incision/area has: Continuous Slow Oozing and Foul Smelling Discharge Call your doctor if you observe: Fever of 101 or Higher, Shortness of breath and Chest pain Follow Up Care Please Follow Up With: Emanuel Schaeffer MD When: 2 weeks postoperatively Test Results: Test results from this visit will be discussed in further detail at your follow-up appointment, if applicable. Discharge Plan Admission Attending Provider: Emanuel Schaeffer Primary Care Provider: Azul Huggins Discharge Orders/Prescriptions Prescriptions: No Action levothyroxine 25 mcg tablet 25 mcg PO DAILY Patient Comments: TAKE ONE TABLET BY MOUTH ONCE DAILY ON an EMPTY stomach FOR thyroid. Referrals / Follow Up: Azul Huggins, FLIGHT SIMULATOR TEACHER-C [Primary Care Provider] - Disposition Disposition (needs filled in before D/C Order can be placed): Home, Self Care
--- NOTE | 2023-04-12 11:41 | PCM.OPRPT ---
Report of Operation Date of Procedure: 04/12/23 Pre-Operative Diagnosis: Abnormal uterine bleeding, desires permanent sterilization Post-Operative Diagnosis: Abnormal uterine bleeding, desires permanent sterilization Surgery/Procedure Performed:: Hysteroscopy, dilation curettage, endometrial ablation via Kimberly, laparoscopic bilateral salpingectomy Description of Surgical Findings:: Surgeon: Emanuel Schaeffer MD Anesthesia: General EBL: 5 cc Urine output: 500 cc IV fluids: 600 cc Complications: None Specimen: Endometrial curettings, bilateral fallopian tubes Findings: Hysteroscopy preprocedure noted with no new pathology. Cavity length found to be 7 cm. Abdominal wall hernia noted 6 cm inferior to the umbilicus just right lateral of the midline 2 cm in size. Moderate amount of vesicouterine adhesions. Otherwise normal uterus, tubes, and ovaries. Consent: Patient arrived with abnormal uterine bleeding and desires permanent sterilization elects for hysteroscopy, dilation curettage, endometrial ablation via Kimberly, laparoscopic bilateral salpingectomy. Patient understands risk of the procedure include but are not limited to visceral or vascular injury, prolonged hospitalization, blood loss and need for transfusion, reoperation. Patient state understanding wish to proceed. All questions were answered and consent was signed. Procedure: Patient was brought back to the OR where general anesthesia was found to be adequate. Patient was prepared and draped in a dorsolithotomy position with yellowfin stirrups. A weighted speculum is placed in the posterior aspect of the vagina and cervical dilators were used to dilate the cervix. Hysteroscope was inserted and above findings were noted. Cavity length noted to be 7 cm. Sharp endometrial curettings were performed in all portions of the cavity and sent to pathology. Kimberly endometrial ablation device was inserted under direct visualization. Kimberly safety test passed x2. Kimberly endometrial ablation was performed for 120 seconds. Kimberly device was removed under direct visualization. Good hemostasis was noted. Uterine manipulator was placed. Varies needle was inserted at the umbilicus and water safety test was passed. Abdomen was insufflated. 5 mm supraumbilical midline trocar was inserted under direct visualization. Laparoscope was inserted and above findings were noted. 8 mm right lower quadrant trocar was inserted under direct visualization. Left lower quadrant 5 mm trocar was inserted under direct visualization. Using atraumatic grasper and a LigaSure device the left fallopian tube was identified to the fimbria and the mesosalpinx was cut and cauterized with a LigaSure device, fallopian tube was transected at the cornua and sent to pathology. Good hemostasis was noted. Right fallopian tube was identified to the fimbria and the mesosalpinx was cut and cauterized with the LigaSure device. Right fallopian tube was transected at the cornua and was sent to pathology. Good hemostasis was noted. Abdominal insufflation pressure was dropped to 5 mmHg and good hemostasis was noted. Abdomen was desufflated. Trocars removed under direct visualization and good hemostasis was noted. Uterine manipulator was removed and good hemostasis was noted at manipulator site. Laparoscopic port sites were closed in a subcutaneous fashion and skin glue was placed over the incisions. Good hemostasis was noted. All counts were correct x2. Patient tolerated the procedure well and was brought to recovery in a stable condition. mathematics education professor: Audi Villarreal
[2023-04-12] MEDS: Ketorolac 30 MG/ML Syringe IV (12:09)
--- NOTE | 2023-04-12 12:18 | SUR.PHASEI ---
PATIENT VOIDED IN PACU.
[2023-04-12] MEDS: Acetaminophen 500 MG Tablet 1000 MG PO (13:45)
== END 2023-04-12 14:00 | disposition home or self-care (01) ==
LOC: SDC 07:39 → AC 07:41
PROVIDERS: Anesthesiology; PCP Nurse Practitioner Family; Referring Provider Obstetrics & Gynecology; Visit Provider Obstetrics & Gynecology
PROC: 0U5B8ZZ Destruction of Endometrium, Via Natural or Artificial Opening Endoscopic (ICD-10-PCS; CPT 58558; principal; 2023-04-12 09:15)
DX: N93.9 Abnormal uterine and vaginal bleeding, unspecified (principal); Z30.2 Encounter for sterilization; E06.3 Autoimmune thyroiditis; Z79.899 Other long term (current) drug therapy
CPT/HCPCS: 58563; 58661; 00952; 36415; 81025; 84443; 85027; 85610; 85730; 86850; 86900; 86901; 88302; 88305; J7120; J2405

== ENCOUNTER → 2023-10-21 | Outpatient (CLI) | payer SELFPAY | END | disposition home or self-care (01) | LOC: LAB 15:29 | PROVIDERS: Referring Provider Internal Medicine Endocrinology, Diabetes & Metabolism; Visit Provider Internal Medicine Endocrinology, Diabetes & Metabolism | DX: E06.3 Autoimmune thyroiditis (principal) | CPT/HCPCS: 36415; 84439; 84443 ==

== ENCOUNTER → 2024-03-15 | Outpatient (CLI) | payer OTHER, SELFPAY ==
[2024-03-15 10:24] LABS: Absolute Lymphocyte Count 2.13 X10^3/uL (0.83-4.51); Absolute Neutrophil Count 6.1 X10^3/uL (2.0-7.7); Basophil# 0.02 X10^3/uL; Basophil% 0.2 % (0-1); Hematocrit 42.2 % (37-47); Hemoglobin 13.6 g/dL (12.0-15.0); Lymphocyte # 2.13 X10^3/ul (0.83-4.51); Lymphocyte % 23.6 % (19-41); Mean Corp Hgb Conc 32.2 g/dL (32-36); Mean Corpuscular Hgb 28.6 pg (27.0-32.0); Mean Corpuscular Volume 88.7 fL (81-99); Mean Platelet Vol. 8.9 fl (6.2-12.0); Monocyte# 0.76 X10^3/uL; Monocyte% 8.4 % (0-10); NRBC Flagged by Analyzer 0 % (0-5); Neutrophil # 6.09 X10^3/uL (2.7-7.7); Neutrophil % 67.5 % (47-70); Platelet Count 368 K/mm3 (150-450); RBC Distribution Width CV 12.4 % (11.6-14.6); RBC Distribution Width SD 40.6 fl (35.1-43.9); Red Blood Count 4.76 M/mm3 (4.2-5.4)
[2024-03-15 10:57] LABS: Ferritin 27 ng/mL (8-252); T4 Free Direct 1.04 ng/dL (0.76-1.46); Thyroid Stim Hormone (TSH) 0.43 uIU/mL (0.358-3.74)
== END | disposition home or self-care (01) ==
LOC: LAB 09:34
PROVIDERS: PCP Family Medicine; Referring Provider Internal Medicine Endocrinology, Diabetes & Metabolism; Visit Provider Internal Medicine Endocrinology, Diabetes & Metabolism
DX: E03.8 Other specified hypothyroidism (principal); E06.3 Autoimmune thyroiditis; E61.1 Iron deficiency
CPT/HCPCS: 36415; 82728; 84439; 84443; 85025

== ENCOUNTER → 2024-03-31 | Outpatient (CLI) | payer OTHER, SELFPAY ==
--- NOTE | 2024-03-31 12:41 | ECHOCS_ITS ---
Reason For Study: Palpitations Procedure This was a 2D Doppler, Color Flow transthoracic echocardiogram. The study was technically difficult. Contrast injection was performed. Exam performed in department. Left Ventricle Normal LV size. The estimated ejection fraction is 70 %. No evidence for diastolic dysfunction. No regional wall motion abnormalities noted. Right Ventricle Normal RV size. Normal systolic function. Atria The left and right atria are normal. Mitral Valve There is mild mitral annular calcification. There is no mitral valve stenosis. No mitral valve insufficiency. Tricuspid Valve There is no tricuspid stenosis. Unable to estimate RV systolic pressure due to inadequate jet, pulmonary artery pressure probably normal. Aortic Valve Trisinus/trileaflet aortic valve. There is no aortic stenosis. No aortic valve insufficiency. Pulmonic Valve There is no pulmonic valvular stenosis. Trivial pulmonic valve insufficiency. Great Vessels Normal aortic root. Pericardium/Pleural No pericardial effusion. Medication 22 gauge I.V. with prn adaptor inserted into right arm. Diluted definity 1.5ml given slow IV push to enhance endocardial definition. MMode/2D Measurements & Calculations LVIDd: 3.9 cm IVSd: 0.71 cm Ao root diam: 2.5 cm LVIDs: 2.9 cm LVPWd: 0.65 cm LA dimension: 3.1 cm RVDd: 3.3 cm FS: 24.7 % LAV(MOD-bp): 20.0 ml LVAd ap4: 28.0 cm2 SV(MOD-sp4): 45.3 ml LAV(MOD-bp) Indexed: 11.2 ml/m2 LVLd ap4: 7.5 cm LAV(MOD-sp2): 22.4 ml EDV(MOD-sp4): 84.2 ml LAV(MOD-sp4): 17.3 ml EDV(sp4-el): 88.3 ml LVAs ap4: 16.9 cm2 LVLs ap4: 6.2 cm ESV(MOD-sp4): 38.9 ml ESV(sp4-el): 39.2 ml EF(MOD-sp4): 53.8 % EF(sp4-el): 55.7 % SV(sp4-el): 49.2 ml LA A4 area: 9.4 cm2 RA A4 area: 11.7 cm2 TAPSE: 1.8 cm Time Measurements MV dec time: 0.17 sec Doppler Measurements & Calculations MV E max vicente: 76.9 cm/sec Lat Peak E' Vicente: 16.3 cm/sec Med Peak E' Vicente: 13.8 cm/sec MV A max vicente: 77.2 cm/sec E/E' lat: 4.7 E/E' med: 5.6 MV E/A: 1.00 Ao V2 max: 102.2 cm/sec LV V1 max: 87.9 cm/sec MV dec slope: 451.9 cm/sec2 Ao max P.2 mmHg LV V1 max P.1 mmHg Ao V2 mean: 73.6 cm/sec LV V1 mean P.8 mmHg Ao mean P.4 mmHg LV V1 mean: 62.7 cm/sec Ao V2 VTI: 19.8 cm LV V1 VTI: 17.1 cm AV (velocity ratio): 0.87 PA V2 max: 98.8 cm/sec PA max PG (full): 1.1 mmHg PA V2 mean: 69.8 cm/sec PA mean PG (full): 0.73 mmHg ECHO/Echo Complete W/ Contrast Interpretation Summary The estimated ejection fraction is 70 %. No evidence for diastolic dysfunction. Ordering Physician: Azul Huggins Referring Physician: Azul Huggins Performed By: Elpidio Barnes RCS
== END | disposition home or self-care (01) ==
LOC: CVS 12:41
PROVIDERS: PCP Family Medicine; Referring Provider Nurse Practitioner Family; Visit Provider Nurse Practitioner Family
DX: R00.2 Palpitations (principal); F48.8 Other specified nonpsychotic mental disorders
CPT/HCPCS: 93306; Q9957; A4216; C8929

== ENCOUNTER → 2024-05-03 | Outpatient (CLI) | payer OTHER, SELFPAY ==
--- NOTE | 2024-05-03 07:27 | MRI_ITS ---
STUDY: MRI RIGHT KNEE REASON FOR EXAM: Female, 28 years old. Right knee swelling, sharp throbbing pain for one year. No known injury. Internal derangement, trauma, hypermobility of the joint. TECHNIQUE: Standardized fat and water weighted pulse sequences were obtained in all 3 orthogonal planes. COMPARISON: None. FINDINGS: Normal medial meniscus. Normal hyaline cartilage of the medial femorotibial compartment. Normal medial femoral condyle and tibial plateau. Normal medial collateral ligamentous complex (MCL). Normal distal semimembranosus, gracilis and semitendinosus tendons. Normal lateral meniscus. Normal hyaline cartilage of the lateral femorotibial compartment. Normal lateral femoral condyle and tibial plateau. Normal proximal tibiofibular articulation. Normal lateral collateral (fibular) ligament. Normal popliteus tendon. Normal biceps femoris tendon. Normal anterior cruciate ligament (ACL). Normal posterior cruciate ligament (PCL). Normal congruent patellofemoral articulation. Normal hyaline cartilage of the patellofemoral compartment. Normal medial and lateral patellar retinaculum. Normal quadriceps tendon. Normal patellar tendon. Normal Hoffa''s fat pad. There is a small joint effusion. There is no popliteal cyst. The soft tissues are unremarkable. The otherwise visualized osseous structures are unremarkable. MRI/Lower Ext Joint Only (Routine) IMPRESSION: Small joint effusion. No discrete meniscal tear or acute ligamentous injury. Electronically Signed: Grady Banuelos MD at 12:53 EDT ,
== END | disposition home or self-care (01) ==
LOC: MRI 07:13
PROVIDERS: PCP Nurse Practitioner Family
DX: M24.9 Joint derangement, unspecified (principal); M25.50 Pain in unspecified joint
CPT/HCPCS: 73721

== ENCOUNTER → 2024-05-09 | Outpatient (CLI) | payer OTHER, SELFPAY ==
[2024-05-09 09:19] LABS: Absolute Lymphocyte Count 2.84 X10^3/uL (0.83-4.51); Basophil# 0.06 X10^3/uL; Basophil% 0.8 % (0-1); Eosinophil# 0.23 X10^3/uL; Hematocrit 39.3 % (37-47); Hemoglobin 12.7 g/dL (12.0-15.0); Lymphocyte # 2.84 X10^3/ul (0.83-4.51); Lymphocyte % 36.5 % (19-41); Mean Corp Hgb Conc 32.3 g/dL (32-36); Mean Corpuscular Hgb 29.2 pg (27.0-32.0); Mean Corpuscular Volume 90.3 fL (81-99); Mean Platelet Vol. 8.9 fl (6.2-12.0); Monocyte# 0.69 X10^3/uL; Monocyte% 8.9 % (0-10); NRBC Flagged by Analyzer 0 % (0-5); Neutrophil # 3.95 X10^3/uL (2.7-7.7); Neutrophil % 50.5 % (47-70); Platelet Count 278 K/mm3 (150-450); RBC Distribution Width CV 12.6 % (11.6-14.6); Red Blood Count 4.35 M/mm3 (4.2-5.4); White Blood Count 7.8 K/mm3 (4.4-11.0)
[2024-05-09 09:51] LABS: Anion Gap 5 (5-15); BUN 9 mg/dL (7-18); BUN/Creat Ratio 12.5 RATIO (10-20); Calcium,Total 9.3 mg/dL (8.5-10.1); Chloride 110 mmol/L (98-107); Creatinine, Serum 0.72 mg/dL (0.55-1.02); EST Glomerular Filtration Rate 104 mL/min (>60); Est Glom Filt Rate - Afr Amer 125 mL/min (>60); Glucose 96 mg/dL (74-106); Potassium 3.7 mmol/L (3.5-5.1); Sodium Level 143 mmol/L (136-145)
[2024-05-09 09:56] LABS: hCG Titer Quant., Serum < 1 mIU/mL (1-3)
--- NOTE | 2024-05-15 17:22 | PCM.TILTTABL ---
Staff Staff: Amy Humphrey and Marina Love Summary Pre Test Resting HR: 93 Pre Test Resting BP: 113/85 Minimum Test HR: 92 Maximum Test HR: 101 Minimum Test BP: 103/79 Maximum Test BP: 115/80 Reason for Test Termination: Reached Maximum Test Time Physician Tilt Table Report Patient's Physicians Primary Care Physician: Azul Huggins Indications/Diagnosis: Syncope Procedure Comments: Patient was brought to the noninvasive lab in the postabsorptive nonsedated state. Informed consent was obtained. Initial EKG was performed demonstrating heart rate of 95 bpm blood pressure 118/81 mmHg. The patient was then put in the 70 degree head upright tilt position for a total duration of 30 minutes continuous EKG blood pressure and heart rate were monitored. Patient had minimal symptomatology of dizziness which dissipated. Heart rate and blood pressure were maintained. No significant abnormalities were noted. Summary: Negative head upright tilt table test with no symptoms or EKG changes.
[2024-05-15 17:25] VITALS: BP 103/79; BP 113/85; BP 115/80
== END | disposition home or self-care (01) ==
LOC: CVS 08:59
PROVIDERS: PCP Nurse Practitioner Family; Referring Provider Nurse Practitioner Family; Visit Provider Nurse Practitioner Family
DX: Z01.818 Encounter for other preprocedural examination (principal); F48.8 Other specified nonpsychotic mental disorders
CPT/HCPCS: 36415; 80048; 84702; 85025; 93660; J7040; A4216

== ENCOUNTER 2024-06-27 18:08 | Emergency (ER) | payer OTHER, SELFPAY ==
[2024-06-27] VITALS (7 sets, daily range): BP systolic 103–116; BP diastolic 73–92; PULSE 83–141; RESP 16–20; TEMP 36.6–37; O2SAT 20–99; BMI 31.6
--- NOTE | 2024-06-27 18:17 | EKG12_ITS ---
Test Reason : PALP Blood Pressure : */* mmHG Vent. Rate : 106 BPM Atrial Rate : 107 BPM P-R Int : 160 ms QRS Dur : 82 ms QT Int : 334 ms P-R-T Axes : 49 49 34 degrees QTcB Int : 443 ms Sinus tachycardia Otherwise normal ECG Confirmed by Juancho Calderon ([id number]), acquisition editor SHWETHA GILLILAND ([id number]) on 06/28/2024 1:06:42 PM Referred By: TA/LAKESHIA Confirmed By: Juancho Calderon
--- NOTE | 2024-06-27 18:34 | EDS_ITS ---
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 She did 7 minutes x 2 of chest compressions during the CODE BLUE. She then started to feel her heart was racing and became sweaty and diaphoretic. She was she felt short of breath. Her heart rate was in the 160s. She tried vagal maneuvers and then took an extra dose of her propranolol about 20 minutes prior to coming to the emergency room. Upon arrival to the emergency room her SVT broke and she states that she is still feeling weak and a little short of breath but overall starting to feel better. Just had a big workup at [facility] with blood work patient states. She states that her next step is to have a Holter monitor. There is also question if she could have some underlying SVT patient states. No other complaints or concerns reported at this time. Patient states she has been in her usual state of health otherwise was feeling fine earlier today which is why she volunteered to do chest compressions. Notes that she sometimes gets swelling of her legs associated with being at the end of her shift but is not too bad today. Denies any difficulty breathing. Denies history of DVT or PE. [facility] Medical History (Updated 06/27/24 @ 22:[address] 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 Wears contact lenses Wears glasses Tasha's disease Anemia Easy bruising Family history of hearing loss at age younger than 7 years Prolonged rupture of membranes, delivered Asthma hemorrhage depression Headache Seizures Epilepsy Home Medications ?Medication ?Instructions ?Recorded ?Last Taken ?Type levothyroxine 75 mcg tablet 75 mcg PO DAILY #90 tabs 06/05/24 Unknown Rx propranolol 20 mg tablet 20 mg PO TID 06/27/24 Unknown History Allergy/AdvReac Type Severity Reaction Status Date / Time hydrocodone (From Vicodin) Allergy Vomiting Verified 03/14/24 11:15 hydromorphone (From Dilaudid) Allergy Swelling Verified 03/14/24 11:15 adhesive tape AdvReac BLISTERS Verified 03/14/24 11:15 Family History Mother Bleeding disorder Anemia Asthma Cancer Diabetes Thyroid disorder Lupus Grandmother Asthma Bowel disease Breast cancer Hypertension Thyroid disorder Hypercholesterolemia Grandfather Cancer Hypertension Thyroid disorder Surgical History H/O tubal ligation History of delivery Hx of tonsillectomy Social History Smoking Status: Never smoker alcohol intake: never substance use type: does not use what type of physical activity do you participate in: walking ROS ROS ED Constitutional Constitutional ED: Reports sweats; Denies chills or fever(s) Eyes Eyes: Denies blurry vision Cardiovascular Cardiovascular: Reports as per HPI, palpitations and racing heartbeat Respiratory/Chest Respiratory/Chest: Reports dyspnea; Denies cough Gastrointestinal Gastrointestinal: Denies nausea or vomiting Integumentary Denies rash Neurologic Neurologic: Reports weakness; Denies headache(s) Hematologic/Lymphatic Hematologic/Lymphatic: Denies easy bleeding or easy bruising EXAM Physical Exam Const Vital Signs: 06/27/24 18:10 06/27/24 19:08 06/27/24 20:00 Temperature 97.9 F Temperature Source Temporal Pulse Rate 141 H 92 89 Pulse Rate [Lying] Pulse Rate [Sitting (for 1 minute prior to obtaining)] Pulse Rate [Standing (for 1 minute prior to obtaining)] Respiratory Rate 20 H 16 18 Blood Pressure 116/86 H 109/92 H 103/73 Blood Pressure [Lying] Blood Pressure [Sitting (for 1 minute prior to obtaining)] Blood Pressure [Standing (for 1 minute prior to obtaining)] Blood Pressure Mean 96 97 83 Blood Pressure Mean [Lying] Blood Pressure Mean [Sitting (for 1 minute prior to obtaining)] Blood Pressure Mean [Standing (for 1 minute prior to obtaining)] Pulse Ox 99 20 99 Oxygen Delivery Method Room Air Room Air Room Air 06/27/24 20:06 06/27/24 21:00 06/27/24 22:00 Temperature Temperature Source Pulse Rate 92 83 Pulse Rate [Lying] 90 Pulse Rate [Sitting (for 1 minute prior to obtaining)] 93 Pulse Rate [Standing (for 1 minute prior to obtaining)] 92 Respiratory Rate 16 16 Blood Pressure 107/73 103/76 Blood Pressure [Lying] 104/77 Blood Pressure [Sitting (for 1 minute prior to obtaining)] 103/87 H Blood Pressure [Standing (for 1 minute prior to obtaining)] 107/86 H Blood Pressure Mean 84 85 Blood Pressure Mean [Lying] 86 Blood Pressure Mean [Sitting (for 1 minute prior to obtaining)] 92 Blood Pressure Mean [Standing (for 1 minute prior to obtaining)] 93 Pulse Ox 97 95 Oxygen Delivery Method Room Air Room Air Positive well nourished and well developed General Appearance ED: well developed and NAD HEENT Reports moist mucous membranes normocephalic and atraumatic Eyes PERRL Neck supple and no JVD Chest Wall inspection of chest normal Resp normal respiratory effort and clear to auscultation bilaterally Cardio regular rate and regular rhythm Extremity normal to inspection General Extremety ED: Negative for edema General Extremity: Negative for edema Neuro oriented x3 Sensorium / Orientation: awake and alert Motor Exam: Negative for general weakness Psych mental status grossly normal Skin Skin Narrative: Cool, mildly diaphoretic MDM MDM MDM Narrative Medical decision making narrative: Patient is a 28-year-old female with history of of SVT presenting for an episode of palpitations, shortness of breath and sweating. Patient was performing chest compressions for total 14 minutes when her symptoms started. She did take at extra dose of propranolol prior to coming down. Patient's initial heart rate was 141 in triage however before EKG could be performed patient felt that her heart rate converted and EKG showed sinus tachycardia. Given that patient has a history of this is getting worked up by EP at [facility], patient initially was observed for about 30 to 45 minutes to see if she felt that she had return to baseline and at that point plan was to discharge her home. Patient continued feel lightheaded not feel right so workup was ordered. Patient was noted to have a mild leukocytosis of 13.2 however workup otherwise normal. Her high-sensitivity was less than 3. TSH normal at 2.60. She did normal D-dimer 0.27. No electrolyte abnormalities. Urinalysis most consistent with contamination. No findings on lab work consistent with dehydration. Vital signs do normalize while in the emergency room. Chest x-ray viewed by myself as well as radiology does not show any acute process. Orthostatics are negative the emergency room. The patient is comfortable discharge home now. Encourage pushing fluids and avoiding overly strenuous activity until cleared by electrophysiology. She is agreeable with this. Given return precautions. Discharged home in stable improved condition. Is counseled on a leukocytosis and an to keep it out for any type of infectious symptoms. Lab Data Attestation: I reviewed the patient's lab results. Labs: Laboratory Results - last 24 hr 06/27/24 06/27/24 20:03 20:47 WBC 13.2 H RBC 4.42 Hgb 13.1 Hct 39.1 MCV 88.5 MCH 29.6 MCHC 33.5 RDW Std Deviation 39.6 RDW Coeff of [place]ee[place] 12.0 Plt Count 405 MPV 9.8 Immature Gran % (Auto) 0.400 Neut % (Auto) 57.6 Lymph % (Auto) 33.0 [place] % (Auto) 7.3 Eos % (Auto) 1.4 Baso % (Auto) 0.3 Absolute Neuts (auto) 7.6 Absolute Lymphs (auto) 4.37 Nucleated RBC % 0 D-Dimer Quant (PE/DVT) 0.27 Sodium 137 Potassium 3.8 Chloride 105 Carbon Dioxide 24.0 Anion Gap 8 BUN 18 Creatinine 0.92 Estim Creat Clear Calc 93.33 Est GFR (MDRD) Af Amer 94 Est GFR (MDRD) Non-Af 78 BUN/Creatinine Ratio 19.6 Glucose 90 Calcium 10.1 Troponin I High Sens < 3 L TSH 2.610 Urine Color Yellow Urine Clarity Clear Urine pH 7.0 Ur Specific [place]y 1.010 Urine Protein Negative Urine Glucose (UA) Normal Urine Ketones Negative Urine Occult Blood 10 H Urine Nitrite Negative Urine Bilirubin Negative Urine Urobilinogen Normal Ur Leukocyte Esterase 25 H Urine RBC 0-5 SEEN Urine WBC 0-5 SEEN Ur Squamous Epith Cells 5-10 SEEN Urine Bacteria 1+ Hyaline Casts 0-5 SEEN Urine Mucus 1+ Radiography Diagnostic Testing: Clinical Impression(s) from Imaging Studies Chest X-Ray 06/27/24 19:48 IMPRESSION: No radiographic evidence of acute cardiopulmonary disease. Electronically Signed: Rakesh Green DO at 20:39 EST Reading Location ID and State: [facility] / [place] Tel [phone], Service support , Rhythm Strip Rhythm Strip: Sinus Tach Rate: 106 Ectopy: None EKG Initial EKG: Attestation: I personally reviewed and interpreted this EKG as follows: Interpretation: Sinus Tachycardia Comments: Sinus tachycardia at a rate of 106 bpm Normal axis Normal intervals Normal ST segments Discharge Plan Triage Chief Complaint: Palpitations ED Provider: Ana Lilia Modi Dx/Rx/DC Orders Clinical Impression: Palpitation, History of supraventricular tachycardia Instructions: ED About Arrhythmias, ED Palpitations Prescriptions: No Action propranolol 20 mg tablet 20 mg PO TID levothyroxine 75 mcg tablet 75 mcg PO DAILY Qty: 90 0RF Primary Care Provider: Azul Huggins Referrals: Azul Huggins, [employer] [Primary Care Provider] - Activity Restrictions/Additional Instructions: Please continue to follow-up with your physician industrial at [facility]. Return if you have progression worsening your symptoms. Your workup overall is reassuring however you did have a mild elevation of her white blood cell count. This is nonspecific however. There is no obvious source of infection on your workup today. Print Language: [place] Citizen Disposition Disposition: Home, Self Care
--- NOTE | 2024-06-27 19:48 | RAD_ITS ---
INDICATION: sob EXAMINATION/TECHNIQUE: X-RAY - XR Chest 2 Views COMPARISON: July 29, 2020 FINDINGS: LINES/DEVICES: None. LUNGS: No consolidation, edema or effusion. No pneumothorax. MEDIASTINUM AND CARDIOVASCULAR STRUCTURES: Cardiac silhouette not enlarged. Central airways and mediastinal contour are unremarkable. BONES AND SOFT TISSUES: Unremarkable. RAD/Chest PA and Lateral IMPRESSION: No radiographic evidence of acute cardiopulmonary disease. Electronically Signed: Rakesh Green DO at 20:39 EST Reading Location ID and State: [facility] / [place] Tel [phone], Service support ,
[2024-06-27 20:13] LABS: Absolute Lymphocyte Count 4.37 X10^3/uL (0.83-4.51); Absolute Neutrophil Count 7.6 X10^3/uL (2.0-7.7); Basophil# 0.04 X10^3/uL; Basophil% 0.3 % (0-1); Eosinophil# 0.19 X10^3/uL; Eosinophils% 1.4 % (0-5); Hematocrit 39.1 % (37-47); Hemoglobin 13.1 g/dL (12.0-15.0); Lymphocyte # 4.37 X10^3/ul (0.83-4.51); Mean Corp Hgb Conc 33.5 g/dL (32-36); Mean Corpuscular Hgb 29.6 pg (27.0-32.0); Mean Corpuscular Volume 88.5 fL (81-99); Mean Platelet Vol. 9.8 fl (6.2-12.0); Monocyte# 0.96 X10^3/uL; Monocyte% 7.3 % (0-10); NRBC Flagged by Analyzer 0 % (0-5); Neutrophil # 7.63 X10^3/uL (2.7-7.7); Neutrophil % 57.6 % (47-70); Platelet Count 405 K/mm3 (150-450); RBC Distribution Width SD 39.6 fl (35.1-43.9); Red Blood Count 4.42 M/mm3 (4.2-5.4); White Blood Count 13.2 K/mm3 (4.4-11.0)
[2024-06-27 20:39] LABS: D-Dimer Quantitative (DVT/PE) 0.27 FEU/ug/m (0.27-0.49)
[2024-06-27 20:59] LABS: Anion Gap 8 (5-15); BUN 18 mg/dL (7-18); BUN/Creat Ratio 19.6 RATIO (10-20); Calcium,Total 10.1 mg/dL (8.5-10.1); Chloride 105 mmol/L (98-107); Creatinine, Serum 0.92 mg/dL (0.55-1.02); EST Glomerular Filtration Rate 78 mL/min (>60); Est Glom Filt Rate - Afr Amer 94 mL/min (>60); Estimated Creatinine Clearance 93.33 ml/min; Glucose 90 mg/dL (74-106); Potassium 3.8 mmol/L (3.5-5.1); Sodium Level 137 mmol/L (136-145); Troponin-I HS < 3 pg/mL (3.0-54.0)
[2024-06-27 21:03] LABS: Color, Urine Yellow (Yellow); Glucose, Dipstick Normal (Normal); Ketone-Dipstick Negative (Negative); Leukocyte Esterase-Dipstick 25 /ul (Negative); Nitrite-Dipstick Negative (Negative); Occult Blood-Urine 10 /ul (Negative); Protein-Dipstick Negative (Negative); Urine Bilirubin Dipstick Negative (Negative); Urine Clarity Clear (Clear); Urine Urobilinogen Normal (Normal)
[2024-06-27 21:22] LABS: Bacteria 1+ /hpf (None Seen); Hyaline Cast 0-5 SEEN /lpf (0-5); Mucous, Urine 1+ /hpf (<or=2+); Red Blood Cells-Urine 0-5 SEEN /hpf (0-5); Squamous Epithelial Cells - UA 5-10 SEEN /hpf (5-10); White Blood Cells 0-5 SEEN /hpf (0-5)
== END 2024-06-27 22:36 | disposition home or self-care (01) ==
PROVIDERS: Emergency Provider Emergency Medicine; PCP Nurse Practitioner Family; Visit Provider Emergency Medicine
DX: R00.2 Palpitations (principal); E06.3 Autoimmune thyroiditis; Z79.899 Other long term (current) drug therapy
CPT/HCPCS: 71046; 80048; 81001; 84443; 84484; 85025; 85379; 93005; 99285; A4216